=== PATIENT | female | born 1960 | race American Indian/Alaskan Native ===

== ENCOUNTER 2017-10-06 13:19 | Inpatient (IN) | payer MEDICAID ==
[2017-10-06] MEDS ORDERED: Sodium Chloride 0.9% 1,000 ML IV STA (13:49)
--- NOTE | 2017-10-06 13:52 | ED PDOC ---
HPI: Abdomen Time Seen by Provider: 10/06/17 13:30 Chief Complaint (Nursing): Abdominal Pain History Per: Patient Onset/Duration Of Symptoms: Days (3) Current Symptoms Are (Timing): Still Present Severity: Moderate Pain Scale Rating Of: 4 Location Of Pain/Discomfort: Epigastric Quality Of Discomfort: Sharp Associated Symptoms: Nausea, Vomiting. denies: Fever, Diarrhea, Urinary Symptoms Exacerbating Factors: None Alleviating Factors: None Additional Complaint(s): Epigastric abd pain assoc with nausea and vomiting x 2-3 days. No fever or diarrhea. Past Medical History Vital Signs: Last Vital Signs Temp 98.0 F 10/06/17 13:26 Pulse 82 10/06/17 13:26 Resp 16 10/06/17 13:26 BP 155/100 H 10/06/17 13:26 Pulse Ox 96 10/06/17 13:52 - Medical History PMH: GERD, HTN - Surgical History Surgical History: Denies: Pacemaker - Family History Family History: States: Unknown Family Hx - Home Medications Home Medications: Ambulatory Orders Medication Instructions Recorded Amlodipine Besylate [Norvasc] 2.5 mg PO DAILY 11/11/12 Bioflavonoid/Ca/Hesperidin/R 1 tab PO DAILY 11/11/12 [Kassi C] Brimonidine Tartrate/Timolol 1 drop OU BID 11/11/12 [Combigan 0.2%-0.5% 5 ml] Latanoprost 0.005% Opht [XALATAN 1 drp OP HS 11/11/12 2.5 Ml] Cyclobenzaprine HCl [Flexeril] 10 mg PO BID PRN #0 tab 06/25/14 Ibuprofen [Motrin Tab] 600 mg PO Q8H PRN #20 tab 06/25/14 - Allergies Allergies/Adverse Reactions: Allergies Allergy/AdvReac Type Severity Reaction Status Date / Time No Known Allergies Allergy Verified 11/11/12 07:46 Review of Systems ROS Statement: Except As Marked, All Systems Reviewed And Found Negative Gastrointestinal: Positive for: Nausea, Vomiting, Abdominal Pain Physical Exam - Physical Exam Appears: Positive for: Non-toxic, No Acute Distress Skin: Positive for: Normal Color, Warm, DRY Cardiovascular/Chest: Positive for: Regular Rate, Rhythm Gastrointestinal/Abdominal: Positive for: Bowel Sounds, Soft, Tenderness ( Epigastric) Back: Negative for: L CVA Tenderness, R CVA Tenderness Extremity: Positive for: Normal ROM Neurologic/Psych: Positive for: Alert, Oriented - Laboratory Results Result Diagrams: 10/06/17 14:26 10/06/17 15:15 - ECG O2 Sat by Pulse Oximetry: 96 Disposition - Clinical Impression Clinical Impression: Pancreatitis, Cholelithiasis - Patient ED Disposition Is Patient to be Admitted: Yes - Disposition Disposition Time: 17:04 Condition: FAIR Forms: [email or web address] ([place]) - Pt Status Changed To: Hospital Disposition Of: Inpatient - Admit Certification Admit to Inpatient:: After my assessment, the patient will require hospitalization for at least two midnights. This is because of the severity of symptoms shown, intensity of services needed, and/or the medical risk in this patient being treated as an outpatient. - POA Present On Arrival: None
[2017-10-06 14:32] LABS: BASO # 0.1 K/uL (0.0-0.2); BASO % 0.6 % (0.0-2.0); EOS # 0.1 K/uL (0.0-0.7); EOS % 0.7 % (0.0-4.0); HEMOGLOBIN 14.3 g/dL (12.0-16.0); LYMPH # 1.7 K/uL (1.0-4.3); LYMPH % 13.4 % (20.0-40.0); MEAN CELL VOLUME 88.4 fl (81.0-99.0); MEAN CORPUSCULAR HEMOGLOBIN 29.8 pg (27.0-31.0); MEAN CORPUSCULAR HGB CONC 33.7 g/dL (33.0-37.0); MEAN PLATELET VOLUME 9.4 fl (7.2-11.7); MONO # 0.9 K/uL (0.0-0.8); MONO % 6.9 % (0.0-10.0); NEUT # 10.2 K/uL (1.8-7.0); NEUT % 78.4 % (50.0-75.0); NRBC % 0.1 % (0.0-0.0); RBC 4.79 Mil/uL (3.80-5.20); RED CELL DISTRIBUTION WIDTH 13.8 % (11.5-14.5); WHITE BLOOD COUNT 13.1 K/uL (4.8-10.8)
[2017-10-06 15:55] LABS: ALBUMIN 4.3 g/dL (3.5-5.0); ALT/SGPT 996 U/L (9-52); AST/SGOT 565 U/L (14-36); BLOOD UREA NITROGEN 16 mg/dl (7-17); CALCIUM 9.4 mg/dL (8.4-10.2); GFR AFRICAN-AMERICAN > 60; GFR NON-AFRICAN AMERICAN > 60
[2017-10-06 16:34] LABS: LIPASE 18558 U/L (23-300)
--- NOTE | 2017-10-06 16:47 | US ---
HISTORY: epigastric pain COMPARISON: Abdominal ultrasound performed 01/31/14 TECHNIQUE: Sonographic evaluation of the right upper quadrant of the abdomen. FINDINGS: LIVER: Measures 15.4 cm in length. Echogenic liver may be seen in setting of hepatic parenchymal disease or fatty infiltration. 1.2 x 1.1 x 1.0 cm anechoic avascular lesion within the left hepatic lobe consistent with a cyst. The main portal vein appears patent with normal directional flow. No intrahepatic bile duct dilatation. GALLBLADDER: Contracted gallbladder containing gallstones. No gallbladder wall thickening or pericholecystic edema. Negative sonographic Land's sign as assessed by the renderer. COMMON BILE DUCT: Measures 3 mm. PANCREAS: Not well-visualized. RIGHT KIDNEY: Measures 10.4 x 5.0 x 3.8 cm. No obstructing calculus or hydronephrosis identified. AORTA: Limited visualization appears grossly unremarkable. IVC: Limited visualization appears grossly unremarkable. OTHER FINDINGS: None . IMPRESSION: Contracted gallbladder with gallstones. Echogenic liver may be seen in setting of hepatic parenchymal disease or fatty infiltration. 1.2 x 1.1 x 1.0 cm anechoic avascular lesion within the left hepatic lobe consistent with a cyst.
[2017-10-06] MEDS ORDERED: Lactated Ringer's 1,000 ML IV SCH (17:00)
[2017-10-06 19:14] LABS: VENOUS BLOOD GAS BASE EXCESS -2.2 mmol/L (0.0-2.0); VENOUS BLOOD GAS PCO2 37 mmHg (40-60); VENOUS BLOOD GAS PO2 37 mm/Hg (30-55); VENOUS BLOOD PH 7.39 (7.32-7.43)
[2017-10-06] MEDS ORDERED: Sodium Chloride 0.9% 1,000 ML IV SCH (20:15)
[2017-10-06] MEDS: Latanoprost 0.005% Opht SOUTION OU SCH (22:35)
[2017-10-06] MEDS: Patient's Own Med (Dorzolamide 2%/Timolol 0.5% [Cosopt 2%-0.5% Opht] 1 DROP) OU SCH (22:35)
[2017-10-07] MEDS ORDERED: Dextrose 5%/0.9% NS 1,000 ML IV SCH (01:45)
[2017-10-07 05:45] LABS: HEMOGLOBIN 12.5 g/dL (12.0-16.0); MEAN CELL VOLUME 87.9 fl (81.0-99.0); MEAN CORPUSCULAR HEMOGLOBIN 29.6 pg (27.0-31.0); MEAN CORPUSCULAR HGB CONC 33.7 g/dL (33.0-37.0); RBC 4.22 Mil/uL (3.80-5.20); RED CELL DISTRIBUTION WIDTH 13.3 % (11.5-14.5); WHITE BLOOD COUNT 10.3 K/uL (4.8-10.8)
[2017-10-07 06:25] LABS: ALBUMIN 3.6 g/dL (3.5-5.0); ALT/SGPT 734 U/L (9-52); AST/SGOT 258 U/L (14-36); BLOOD UREA NITROGEN 14 mg/dl (7-17); CALCIUM 9.2 mg/dL (8.4-10.2); GFR AFRICAN-AMERICAN > 60; GFR NON-AFRICAN AMERICAN > 60; LIPASE 3144 U/L (23-300)
[2017-10-07] MEDS ORDERED: [UNRECOGNIZED DRUG - MIXTURE] PO SCH (09:00)
[2017-10-07] MEDS: Patient's Own Med (Dorzolamide 2%/Timolol 0.5% [Cosopt 2%-0.5% Opht] 1 DROP) OU SCH ×2 (09:15→17:44)
[2017-10-07] MEDS ORDERED: Potassium Chl 40 mEq in D5-NS 1,000 ML IV SCH (09:21)
--- NOTE | 2017-10-07 10:46 | CARD ---
APPROVED REPORT EKG Measurement Heart [id number] <Conclusion> Normal sinus rhythm Low voltage QRS Nonspecific T wave abnormality Abnormal ECG
--- NOTE | 2017-10-07 11:11 | RAD ---
HISTORY: cough COMPARISON: 01/30/2014 FINDINGS: LUNGS: No active pulmonary disease. PLEURA: No significant pleural effusion identified, no pneumothorax apparent. CARDIOVASCULAR: Normal. OSSEOUS STRUCTURES: No significant abnormalities. VISUALIZED UPPER ABDOMEN: Normal. OTHER FINDINGS: None. IMPRESSION: No active disease.
[2017-10-07 14:39] LABS: INR 1.2 (0.9-1.2); PARTIAL THROMBOPLASTIN TIME 38.2 Seconds (25.6-37.1); PROTHROMBIN TIME 13.2 Seconds (9.8-13.1)
--- NOTE | 2017-10-07 15:12 | CP.PCM.CON ---
<Alan Castro - Last Filed: 10/07/17 15:08> History of Present Illness - History of Present Illness History of Present Illness: General Surgery Consult Note for Dr. Sanchez This is a 57F with a PMH of HTN and chronic post prandial abdominal pain for over one year. She reports that 2 days ago her pain became unbearable radiating from the back to the epigastrium. However she reports that this event was not in association with meals. She reports that she has been unable to keep her meals down. SHe reports multiple episodes of emesis that she describes as mucus with food contents. She denies any fevers or chills at home. She also complains of red urine for the past 4 days. On admission she had an abdominal ultrasound that shows gallbladder stones without and GB wall edema or CBD dilation. She denies any history of alcohol use. PMH: HTN PSH: Exlap for cyst compressing neighboring organs, appendectomy ALL: NKDA Social: Denies tob, ETOH, Drugs Review of Systems - Constitutional Constitutional: absent: Anorexia, Chills, Fever, Weight Loss - EENT Eyes: absent: Blind Spots, Blurred Vision Nose/Mouth/Throat: absent: Nasal Congestion, Nasal Discharge - Cardiovascular Cardiovascular: absent: Chest Pain, Dyspnea - Respiratory Respiratory: absent: Cough, Dyspnea - Gastrointestinal Gastrointestinal: Abdominal Pain, Diarrhea, Heartburn, Nausea, Vomiting. absent : Hematemesis, Hematochezia - Genitourinary Genitourinary: Other - Musculoskeletal Musculoskeletal: Back Pain - Integumentary Integumentary: absent: Lesions Past Patient History - Infectious Disease Hx of Infectious Diseases: None - Past Medical History & Family History Past Medical History?: Yes - Past Social History Smoking Status: Never Smoked - CARDIAC Hx Cardiac Disorders: Yes Hx Hypertension: Yes - PULMONARY Hx Respiratory Disorders: Yes Hx Asthma: Yes ("a touch of asthma") - NEUROLOGICAL Hx Neurological Disorder: Yes HX Cerebrovascular Accident: Yes (7 yrs ago) - HEENT Hx Glaucoma: Yes - RENAL Hx Chronic Kidney Disease: No - HEMATOLOGICAL/ONCOLOGICAL Hx AIDS: No Hx Blood Transfusions: No Hx Blood Transfusion Reaction: No Hx Human Immunodeficiency Virus (HIV): No - INTEGUMENTARY Hx Dermatological Problems: No - MUSCULOSKELETAL/RHEUMATOLOGICAL Hx Musculoskeletal Disorders: Yes (SCIATICA) Hx Falls: No - GASTROINTESTINAL Hx Gastroesophageal Reflux: Yes - GENITOURINARY/GYNECOLOGICAL Hx Genitourinary Disorders: No - PSYCHIATRIC Hx Substance Use: No - SURGICAL HISTORY Hx Surgeries: Yes Hx Hysterectomy: Yes Other/Comment: abdominal tumor removed - ANESTHESIA Hx Anesthesia: Yes Hx Anesthesia Reactions: No Meds Allergies/Adverse Reactions: Allergies Allergy/AdvReac Type Severity Reaction Status Date / Time No Known Allergies Allergy Verified 11/11/12 07:46 - Medications Medications: Current Medications Acetaminophen (Tylenol 325mg Tab) 650 mg PO Q6 PRN PRN Reason: Pain, Mild (1-3) Amlodipine Besylate (Norvasc) 2.5 mg PO DAILY [facility] Enoxaparin Sodium (Lovenox) 40 mg SC DAILY [facility] PRN Reason: Protocol Home Med (Dorzolamide 2%/Timolol 0.5% [Cosopt 2%-0.5% Opht]) 1 drop OU BID [facility] Last Admin: 10/07/17 09:15 Dose: 1 drop Hydromorphone HCl (Dilaudid) 1 mg IVP Q4 PRN PRN Reason: Pain, severe (8-10) Hydromorphone HCl (Dilaudid) 0.5 mg IVP Q6H PRN PRN Reason: Pain, moderate (4-7) Potassium Chloride/Dextrose/Sod Cl (D5-Ns1l+40meq Kcl) 1,000 mls @ 125 mls/hr IV .Q8H [facility] Stop: 10/08/17 01:31 Latanoprost (Xalatan Opht) 1 drop OU HS [facility] Last Admin: 10/06/17 22:35 Dose: 1 drop Physical Exam - Constitutional Appears: Non-toxic, No Acute Distress - Head Exam Head Exam: ATRAUMATIC, NORMOCEPHALIC - Eye Exam Eye Exam: EOMI - ENT Exam ENT Exam: Mucous Membranes Moist - Respiratory Exam Respiratory Exam: NORMAL BREATHING PATTERN - Cardiovascular Exam Cardiovascular Exam: REGULAR RHYTHM, +S1, +S2 - GI/Abdominal Exam GI & Abdominal Exam: Soft, Tenderness. absent: Distended, Firm, Guarding, Rebound, Rigid - Extremities Exam Extremities exam: Positive for: normal inspection - Neurological Exam Neurological exam: Alert, Oriented x3 - Psychiatric Exam Psychiatric exam: Normal Affect, Normal Mood - Skin Skin Exam: Dry, Intact Results - Vital Signs Recent Vital Signs: Last Vital Signs Temp 98.0 F 10/07/17 12:00 Pulse 76 10/07/17 12:00 Resp 18 10/07/17 12:00 BP 143/93 H 10/07/17 12:00 Pulse Ox 98 10/07/17 12:00 - Labs Result Diagrams: 10/07/17 04:20 10/07/17 04:20 Labs: Laboratory Results - last 24 hr 10/06/17 10/06/17 10/07/17 15:15 19:05 04:20 WBC 10.3 RBC 4.22 Hgb 12.5 Hct 37.1 MCV 87.9 MCH 29.6 MCHC 33.7 RDW 13.3 Plt Count 364 PT INR APTT pO2 37 VBG pH 7.39 VBG pCO2 37 L VBG HCO3 22.5 VBG Total CO2 23.5 VBG O2 Sat (Calc) 77.0 H VBG Base Excess -2.2 L VBG Potassium 3.1 L Glucose 98 Lactate 1.2 FiO2 21.0 Sodium 143 141.0 Potassium 3.6 Chloride 109 H 110.0 H Carbon Dioxide 19 L Anion Gap 19 BUN 16 Creatinine 0.7 Est GFR ( Amer) > 60 Est GFR (Non-Af Amer) > 60 Random Glucose 104 Calcium 9.4 Total Bilirubin 3.5 H AST 565 H ALT 996 H Alkaline Phosphatase 674 H Total Protein 8.7 H Albumin 4.3 Globulin 4.4 H Albumin/Globulin Ratio 1.0 Lipase 12791 H TSH 3rd Generation Venous Blood Potassium 3.1 L 10/07/17 10/07/17 04:20 11:33 WBC RBC Hgb Hct MCV MCH MCHC RDW Plt Count PT 13.2 H INR 1.2 APTT 38.2 H pO2 VBG pH VBG pCO2 VBG HCO3 VBG Total CO2 VBG O2 Sat (Calc) VBG Base Excess VBG Potassium Glucose Lactate FiO2 Sodium 147 Potassium 2.9 L Chloride 111 H Carbon Dioxide 22 Anion Gap 17 BUN 14 Creatinine 0.8 Est GFR ( Amer) > 60 Est GFR (Non-Af Amer) > 60 Random Glucose 82 Calcium 9.2 Total Bilirubin 1.7 H AST 258 H D ALT 734 H D Alkaline Phosphatase 526 H D Total Protein 7.3 Albumin 3.6 Globulin 3.7 Albumin/Globulin Ratio 1.0 Lipase 3144 H TSH 3rd Generation 1.10 Venous Blood Potassium Assessment & Plan - Assessment and Plan (Free Text) Assessment: This is a 57F with pancreatitis likely secondary to gallstones NPO advance based on clinical improvment IVF Serial Abdominal Exams Follow Up GI Recommendations Followup MRCP Operative planning this admission when pancreatitis resolves Discuss with Dr. Laura Castro PGY2 <Gray Sanchez - Last Filed: 10/08/17 09:39> Meds - Medications Medications: Current Medications Acetaminophen (Tylenol 325mg Tab) 650 mg PO Q6 PRN PRN Reason: Pain, Mild (1-3) Amlodipine Besylate (Norvasc) 2.5 mg PO DAILY [facility] Last Admin: 10/08/17 09:28 Dose: 2.5 mg Enoxaparin Sodium (Lovenox) 40 mg SC DAILY [facility] PRN Reason: Protocol Last Admin: 10/08/17 09:27 Dose: 40 mg Home Med (Dorzolamide 2%/Timolol 0.5% [Cosopt 2%-0.5% Opht]) 1 drop OU BID [facility] Last Admin: 10/08/17 09:25 Dose: 1 drop Hydromorphone HCl (Dilaudid) 1 mg IVP Q4 PRN PRN Reason: Pain, severe (8-10) Hydromorphone HCl (Dilaudid) 0.5 mg IVP Q6H PRN PRN Reason: Pain, moderate (4-7) Last Admin: 10/08/17 04:41 Dose: 0.5 mg Lactated Ringer's (Lactated Ringer's) 1,000 mls @ 150 mls/hr IV .Q6H40M [facility] Last Admin: 10/08/17 03:50 Dose: 150 mls/hr Latanoprost (Xalatan Opht) 1 drop OU HS [facility] Last Admin: 10/07/17 21:16 Dose: 1 drop Metoprolol Tartrate (Lopressor) 50 mg PO Q12 [facility] Last Admin: 10/07/17 21:17 Dose: 50 mg Results - Vital Signs Recent Vital Signs: Last Vital Signs Temp 98.1 F 10/08/17 08:00 Pulse 81 10/08/17 09:28 Resp 18 10/08/17 08:00 BP 133/83 10/08/17 09:28 Pulse Ox 96 10/08/17 08:00 - Labs Result Diagrams: 10/07/17 04:20 10/08/17 04:30 Labs: Laboratory Results - last 24 hr 10/07/17 10/08/17 11:33 04:30 PT 13.2 H INR 1.2 APTT 38.2 H Sodium 144 Potassium 3.1 L Chloride 108 H Carbon Dioxide 25 Anion Gap 14 BUN 6 L Creatinine 0.6 L Est GFR ( Amer) > 60 Est GFR (Non-Af Amer) > 60 Random Glucose 83 Calcium 8.8 Total Bilirubin 0.9 AST 97 H D ALT 479 H D Alkaline Phosphatase 440 H Total Protein 7.0 Albumin 3.4 L Globulin 3.6 Albumin/Globulin Ratio 1.0 Triglycerides 125 Cholesterol 205 H LDL Cholesterol Direct 129 HDL Cholesterol 31 Lipase 717 H Attending/Attestation - Attestation I have personally seen and examined this patient.: Yes I have fully participated in the care of the patient.: Yes I have reviewed all pertinent clinical information: Yes Notes (Text): Pt was seen and examined at bedside Agree with above note and assessment Pt with Pancreatitis with cholelithiasis Upper abdominal tenderness Labs and radiology reviewed Ass: GS pancreatitis, LFts trending down C/w current mx Repeat LFTs in am IV antibiotics Plan d.w pt in detail Risk and benefit explained in detail.
[2017-10-07] MEDS: Enoxaparin 40 mg Syringe SC SCH (17:45)
--- NOTE | 2017-10-07 17:58 | CP.PCM.CON ---
<Pedro Lassiter - Last Filed: 10/07/17 18:00> History of Present Illness - History of Present Illness History of Present Illness: Initial GI Consult Jun Blue is a 57F w/ hx of HTN and chronic abdominal pain who presented to the ER with abd pain. She reports chronic abd pain for the past 2 years but acutely worsened the past 2 days ago. She notes that her pain worsened after onset. She states that her pain is located in the epigastium radiating towards the back. She reports increased pain with any PO intake, even ice. She reports that she has associated nausea and vomiting. She reports multiple episodes of emesis that she describes as mucus with food contents. She denies any fevers or chills at home. On admission she had an abdominal ultrasound that shows gallbladder stones without and GB wall edema or CBD dilation. She denies any history of alcohol use. She reports previous endoscopy with no sig findings and denies any previous colonoscopy. She states that her last Bm was 3-4 days ago and notes intermittent diarrhea. Denies any fever, chills, or diaphoresis. Denies any previous hx of jaundice. Denies any hx of ETOH use. PMH: HTN PSH: Exlap for cyst compressing neighboring organs, appendectomy Social: Denies tob, ETOH, Drugs ROS: 12 point ROS conducted, neg other than above Past Patient History - Infectious Disease Hx of Infectious Diseases: None - Past Medical History & Family History Past Medical History?: Yes - Past Social History Smoking Status: Never Smoked - CARDIAC Hx Cardiac Disorders: Yes Hx Hypertension: Yes - PULMONARY Hx Respiratory Disorders: Yes Hx Asthma: Yes ("a touch of asthma") - NEUROLOGICAL Hx Neurological Disorder: Yes HX Cerebrovascular Accident: Yes (7 yrs ago) - HEENT Hx Glaucoma: Yes - RENAL Hx Chronic Kidney Disease: No - HEMATOLOGICAL/ONCOLOGICAL Hx AIDS: No Hx Blood Transfusions: No Hx Blood Transfusion Reaction: No Hx Human Immunodeficiency Virus (HIV): No - INTEGUMENTARY Hx Dermatological Problems: No - MUSCULOSKELETAL/RHEUMATOLOGICAL Hx Musculoskeletal Disorders: Yes (SCIATICA) Hx Falls: No - GASTROINTESTINAL Hx Gastroesophageal Reflux: Yes - GENITOURINARY/GYNECOLOGICAL Hx Genitourinary Disorders: No - PSYCHIATRIC Hx Substance Use: No - SURGICAL HISTORY Hx Surgeries: Yes Hx Hysterectomy: Yes Other/Comment: abdominal tumor removed - ANESTHESIA Hx Anesthesia: Yes Hx Anesthesia Reactions: No Meds Allergies/Adverse Reactions: Allergies Allergy/AdvReac Type Severity Reaction Status Date / Time No Known Allergies Allergy Verified 11/11/12 07:46 - Medications Medications: Current Medications Acetaminophen (Tylenol 325mg Tab) 650 mg PO Q6 PRN PRN Reason: Pain, Mild (1-3) Amlodipine Besylate (Norvasc) 2.5 mg PO DAILY [facility] Last Admin: 10/07/17 17:48 Dose: 2.5 mg Enoxaparin Sodium (Lovenox) 40 mg SC DAILY [facility] PRN Reason: Protocol Last Admin: 10/07/17 17:45 Dose: 40 mg Home Med (Dorzolamide 2%/Timolol 0.5% [Cosopt 2%-0.5% Opht]) 1 drop OU BID [facility] Last Admin: 10/07/17 17:44 Dose: 1 drop Hydromorphone HCl (Dilaudid) 1 mg IVP Q4 PRN PRN Reason: Pain, severe (8-10) Hydromorphone HCl (Dilaudid) 0.5 mg IVP Q6H PRN PRN Reason: Pain, moderate (4-7) Potassium Chloride/Dextrose/Sod Cl (D5-Ns1l+40meq Kcl) 1,000 mls @ 125 mls/hr IV .Q8H [facility] Stop: 10/08/17 01:31 Latanoprost (Xalatan Opht) 1 drop OU HS [facility] Last Admin: 10/06/17 22:35 Dose: 1 drop Physical Exam - Constitutional Appears: No Acute Distress - Head Exam Head Exam: ATRAUMATIC, NORMOCEPHALIC - Eye Exam Eye Exam: Normal appearance - ENT Exam ENT Exam: Mucous Membranes Moist - Neck Exam Neck exam: Positive for: Normal Inspection - Respiratory Exam Respiratory Exam: Clear to Auscultation Bilateral, NORMAL BREATHING PATTERN. absent: Prolonged Expiratory Phase, Rhonchi, Wheezes, Respiratory Distress - Cardiovascular Exam Cardiovascular Exam: REGULAR RHYTHM, +S1, +S2 - GI/Abdominal Exam GI & Abdominal Exam: Normal Bowel Sounds, Soft, Tenderness (epigastum and RUQ). absent: Guarding, Rigid Additional comments: obese - Extremities Exam Extremities exam: Negative for: joint swelling, pedal edema - Neurological Exam Neurological exam: Alert, Oriented x3 - Psychiatric Exam Psychiatric exam: Normal Affect, Normal Mood - Skin Skin Exam: Dry, Intact, Normal Color, Warm Results - Vital Signs Recent Vital Signs: Last Vital Signs Temp 98.1 F 10/07/17 16:00 Pulse 75 10/07/17 17:48 Resp 16 10/07/17 16:00 BP 155/97 H 10/07/17 17:48 Pulse Ox 98 10/07/17 16:00 - Labs Result Diagrams: 10/07/17 04:20 10/07/17 04:20 Labs: Laboratory Results - last 24 hr 10/06/17 10/07/17 10/07/17 19:05 04:20 04:20 WBC 10.3 RBC 4.22 Hgb 12.5 Hct 37.1 MCV 87.9 MCH 29.6 MCHC 33.7 RDW 13.3 Plt Count 364 PT INR APTT pO2 37 VBG pH 7.39 VBG pCO2 37 L VBG HCO3 22.5 VBG Total CO2 23.5 VBG O2 Sat (Calc) 77.0 H VBG Base Excess -2.2 L VBG Potassium 3.1 L Sodium 141.0 147 Chloride 110.0 H 111 H Glucose 98 Lactate 1.2 FiO2 21.0 Potassium 2.9 L Carbon Dioxide 22 Anion Gap 17 BUN 14 Creatinine 0.8 Est GFR ( Amer) > 60 Est GFR (Non-Af Amer) > 60 Random Glucose 82 Calcium 9.2 Total Bilirubin 1.7 H AST 258 H D ALT 734 H D Alkaline Phosphatase 526 H D Total Protein 7.3 Albumin 3.6 Globulin 3.7 Albumin/Globulin Ratio 1.0 Lipase 3144 H TSH 3rd Generation 1.10 Venous Blood Potassium 3.1 L 10/07/17 11:33 WBC RBC Hgb Hct MCV MCH MCHC RDW Plt Count PT 13.2 H INR 1.2 APTT 38.2 H pO2 VBG pH VBG pCO2 VBG HCO3 VBG Total CO2 VBG O2 Sat (Calc) VBG Base Excess VBG Potassium Sodium Chloride Glucose Lactate FiO2 Potassium Carbon Dioxide Anion Gap BUN Creatinine Est GFR ( Amer) Est GFR (Non-Af Amer) Random Glucose Calcium Total Bilirubin AST ALT Alkaline Phosphatase Total Protein Albumin Globulin Albumin/Globulin Ratio Lipase TSH 3rd Generation Venous Blood Potassium Assessment & Plan - Assessment and Plan (Free Text) Assessment: Jun Blue is a 57M w/ hx of HTN who presents to the Ed wirg abd pain. Etiology was found to be likely 2/2 pancreatitis. Etiology of acute pancreatitis is likely gallstone induced, r/o TG and IGG4 Acute pancreatitis, etiology likely gallstone, r/o IGG4 an TG Cholelithiasis Elevated LFTs, likely 2/2 passed stone vs pancreatitis, r/o viral hep, autoimmune Obese Plan: -start clears -U/S reviewed -CBD is 3mm, ellyley passed stoned -MRCP ordered by primary team -hepatitis panel -trend LFTs -check lipid panel and IGG4 -surgery consulted -continue with LR @ 150ml/hr -hold any abx -recommend oupt EGD and colonoscopy -continue PPI -will continue to follow D/W Dr. Dickens <Simone Dickens MD - Last Filed: 10/07/17 18:58> Meds - Medications Medications: Current Medications Acetaminophen (Tylenol 325mg Tab) 650 mg PO Q6 PRN PRN Reason: Pain, Mild (1-3) Amlodipine Besylate (Norvasc) 2.5 mg PO DAILY [facility] Last Admin: 10/07/17 17:48 Dose: 2.5 mg Enoxaparin Sodium (Lovenox) 40 mg SC DAILY [facility] PRN Reason: Protocol Last Admin: 10/07/17 17:45 Dose: 40 mg Home Med (Dorzolamide 2%/Timolol 0.5% [Cosopt 2%-0.5% Opht]) 1 drop OU BID [facility] Last Admin: 10/07/17 17:44 Dose: 1 drop Hydromorphone HCl (Dilaudid) 1 mg IVP Q4 PRN PRN Reason: Pain, severe (8-10) Hydromorphone HCl (Dilaudid) 0.5 mg IVP Q6H PRN PRN Reason: Pain, moderate (4-7) Potassium Chloride/Dextrose/Sod Cl (D5-Ns1l+40meq Kcl) 1,000 mls @ 125 mls/hr IV .Q8H [facility] Stop: 10/08/17 01:31 Lactated Ringer's (Lactated Ringer's) 1,000 mls @ 150 mls/hr IV .Q6H40M [facility] Latanoprost (Xalatan Opht) 1 drop OU HS [facility] Last Admin: 10/06/17 22:35 Dose: 1 drop Metoprolol Tartrate (Lopressor) 50 mg PO Q12 [facility] Results - Vital Signs Recent Vital Signs: Last Vital Signs Temp 98.1 F 10/07/17 16:00 Pulse 75 10/07/17 17:48 Resp 16 10/07/17 16:00 BP 155/97 H 10/07/17 17:48 Pulse Ox 98 10/07/17 16:00 - Labs Result Diagrams: 10/07/17 04:20 10/07/17 04:20 Labs: Laboratory Results - last 24 hr 10/06/17 10/07/17 10/07/17 19:05 04:20 04:20 WBC 10.3 RBC 4.22 Hgb 12.5 Hct 37.1 MCV 87.9 MCH 29.6 MCHC 33.7 RDW 13.3 Plt Count 364 PT INR APTT pO2 37 VBG pH 7.39 VBG pCO2 37 L VBG HCO3 22.5 VBG Total CO2 23.5 VBG O2 Sat (Calc) 77.0 H VBG Base Excess -2.2 L VBG Potassium 3.1 L Sodium 141.0 147 Chloride 110.0 H 111 H Glucose 98 Lactate 1.2 FiO2 21.0 Potassium 2.9 L Carbon Dioxide 22 Anion Gap 17 BUN 14 Creatinine 0.8 Est GFR ( Amer) > 60 Est GFR (Non-Af Amer) > 60 Random Glucose 82 Calcium 9.2 Total Bilirubin 1.7 H AST 258 H D ALT 734 H D Alkaline Phosphatase 526 H D Total Protein 7.3 Albumin 3.6 Globulin 3.7 Albumin/Globulin Ratio 1.0 Lipase 3144 H TSH 3rd Generation 1.10 Venous Blood Potassium 3.1 L 10/07/17 11:33 WBC RBC Hgb Hct MCV MCH MCHC RDW Plt Count PT 13.2 H INR 1.2 APTT 38.2 H pO2 VBG pH VBG pCO2 VBG HCO3 VBG Total CO2 VBG O2 Sat (Calc) VBG Base Excess VBG Potassium Sodium Chloride Glucose Lactate FiO2 Potassium Carbon Dioxide Anion Gap BUN Creatinine Est GFR ( Amer) Est GFR (Non-Af Amer) Random Glucose Calcium Total Bilirubin AST ALT Alkaline Phosphatase Total Protein Albumin Globulin Albumin/Globulin Ratio Lipase TSH 3rd Generation Venous Blood Potassium Attending/Attestation - Attestation I have personally seen and examined this patient.: Yes I have fully participated in the care of the patient.: Yes I have reviewed all pertinent clinical information: Yes Notes (Text): 10/07/17 18:55 Patient seen earlier today with GI fellow. This is a 57 yr old M with history of HTN who presents to the ER with abdominal pain in setting of acute uncomplicated pancreatitis in background of cholelithiasis. Etiology of acute pancreatitis is likely gallstone induced, will r/o TG and IGG4. LFT downtrending. Abdominal sonogram shows CBD of 3 mm. MRCP pending. Likely passed bile duct stone. Manage pancreatitis with iVF of 150 cc/hr and start clear liquid diet today if tolerated. Send hepatitis panel and follow surgical recommendations for CCY. DVT prophylaxis
[2017-10-07] MEDS: Lactated Ringer's 1,000 ML IV SCH (21:15)
[2017-10-07] MEDS: Latanoprost 0.005% Opht SOUTION OU SCH (21:16)
--- NOTE | 2017-10-08 00:43 | CON ---
DATE: CARDIOLOGY CONSULTATION REASON FOR CONSULTATION: Hypertension and acute cholecystitis and pancreatitis. HISTORY OF PRESENT ILLNESS: The patient is a 57-year-old female who has a history of hypertension and was treated for acid reflux. She presented because of abdominal pain radiating to the back associated with nausea and vomiting as well as diaphoresis. Patient is unaware of any prior cardiac history other than history of hypertension. Patient was diagnosed with calculous cholecystitis as well as pancreatitis. Patient was unaware of any history of gallstones in the past; however, she was treated for reflux and was experiencing similar symptoms in the past. SOCIAL HISTORY: Nonsmoker, nondrinker. 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 MEDICATIONS: Current medications are D5 normal saline with KCl at 125 mL an hour, Dilaudid 1 mg intravenously q. 4 hours, Lovenox 20 mg once a day, Norvasc 2.5 mg once a day, Tylenol 650 mg q. 6 hours p.r.n. for mild pain. REVIEW OF SYSTEMS: No hematemesis or melena, no fever or chills, no retrosternal chest pain and no palpitation or syncope. PHYSICAL EXAMINATION: GENERAL: Patient is a middle-aged female, who does not appear to be in acute distress. VITAL SIGNS: Blood pressure 155/97, heart rate is 75, temperature 98.1, respirations 16. HEENT: Normocephalic. NECK: No JVD. CHEST: Clear. HEART: S1, S2 regular. ABDOMEN: Soft. EXTREMITIES: No edema. DIAGNOSTIC DATA: Portable chest x-ray revealed no active disease. EKG, sinus rhythm at a rate of 84 with nonspecific T-wave changes. Abdominal ultrasound revealed contracted gallbladder with gallstones. Echogenic liver. A 1.2 x 1.1 x 1 cm anechoic vascular lesion within the left hepatic lobe consistent with a cyst. MRCP was performed, but the report is still pending. LABORATORY DATA: Today's CBC is within normal limits. Yesterday's white count was 13.1. SMA-7: Sodium 147, potassium 2.9, chloride 111, CO2 of 22, glucose 259, BUN 14, creatinine 0.8. AST and ALT are 258 and 734 respectively, significant improvement compared to yesterday, alkaline phosphatase 526, lipase today is 3144, yesterday was 18,558. TSH level is within normal limits. Preliminary report of the echo revealed segmental apical and septal hypokinesis. Official report is still pending. ASSESSMENT: 1. Acute calculous cholecystitis. 2. Acute pancreatitis. 3. Cholestasis. 4. Hypokalemia. 5. Hypertension. 6. Segmental hypokinesis consistent with coronary artery disease. RECOMMENDATIONS: Continue Lovenox 20 mg subcutaneously daily, Norvasc at 2.5 mg once a day, start Lopressor 50 mg twice a day, statins are contraindicated in view of significantly elevated liver enzymes. Despite the presence of segmental wall motion abnormality on the echocardiographic study, the fact that the method is that the patient's dramatic earlier presentation with significant pancreatitis will justify a surgical intervention if there is no spontaneous or procedural passage of the gallbladder stones through the duodenum. Anticoagulation may not be justified because of the risk of hemorrhagic pancreatitis. Lucian Fountain MD [facility] # [id number]
--- NOTE | 2017-10-08 00:45 | CP.PCM.HP ---
History of Present Illness - History of Present Illness History of Present Illness: CC: bdominal Pain History of Present Illness: A 57F with a PMH of HTN and chronic postprandial abdominal pain for over one year. She reports that 2 days ago her pain became unbearable radiating from the back to the epigastrium. However she reports that this event was not in association with meals. She reports that she has been unable to keep her meals down. She reports multiple episodes of Emesis that she describes as mucus with food contents. She denies any fevers or chills at home. She also complains of red urine for the past 4 days. On admission she had an abdominal ultrasound that shows gallbladder stones without and GB wall edema or CBD dilation. She denies any history of alcohol use. +[place]. Denies chest pain, Palpitation or dyspnea at rest. Denies Orthopnia or PND. Present on Admission - Present on Admission Any Indicators Present on Admission: No History of DVT/PE: No History of Uncontrolled Diabetes: No Urinary Catheter: No Decubitus Ulcer Present: No Review of Systems - Review of Systems All systems: reviewed and no additional remarkable complaints except Past Patient History - Infectious Disease Hx of Infectious Diseases: None - Past Medical History & Family History Past Medical History?: Yes Past Family History: Reviewed and not pertinent - Past Social History Smoking Status: Never Smoked Alcohol: None Drugs: Denies - CARDIAC Hx Cardiac Disorders: Yes Hx Hypertension: Yes - PULMONARY Hx Respiratory Disorders: Yes Hx Asthma: Yes ("a touch of asthma") - NEUROLOGICAL Hx Neurological Disorder: Yes HX Cerebrovascular Accident: Yes (7 yrs ago) - HEENT Hx Glaucoma: Yes - RENAL Hx Chronic Kidney Disease: No - HEMATOLOGICAL/ONCOLOGICAL Hx AIDS: No Hx Blood Transfusions: No Hx Blood Transfusion Reaction: No Hx Human Immunodeficiency Virus (HIV): No - INTEGUMENTARY Hx Dermatological Problems: No - MUSCULOSKELETAL/RHEUMATOLOGICAL Hx Musculoskeletal Disorders: Yes (SCIATICA) Hx Falls: No - GASTROINTESTINAL Hx Gastroesophageal Reflux: Yes - GENITOURINARY/GYNECOLOGICAL Hx Genitourinary Disorders: No - PSYCHIATRIC Hx Substance Use: No - SURGICAL HISTORY Hx Surgeries: Yes Hx Hysterectomy: Yes Other/Comment: abdominal tumor removed - ANESTHESIA Hx Anesthesia: Yes Hx Anesthesia Reactions: No Meds Allergies/Adverse Reactions: Allergies Allergy/AdvReac Type Severity Reaction Status Date / Time No Known Allergies Allergy Verified 11/11/12 07:46 Physical Exam - Constitutional Appears: Well, No Acute Distress - Head Exam Head Exam: ATRAUMATIC, NORMAL INSPECTION, NORMOCEPHALIC - Eye Exam Eye Exam: EOMI, Normal appearance, PERRL Pupil Exam: NORMAL ACCOMODATION, PERRL - ENT Exam ENT Exam: Mucous Membranes Moist, Normal Exam - Neck Exam Neck exam: Positive for: Full Rom, Normal Inspection - Respiratory Exam Respiratory Exam: Clear to Auscultation Bilateral, NORMAL BREATHING PATTERN - Cardiovascular Exam Cardiovascular Exam: REGULAR RHYTHM, +S1, +S2 - GI/Abdominal Exam GI & Abdominal Exam: Guarding, Normal Bowel Sounds, Tenderness. absent: Rebound , Rigid Additional comments: Obese abdomen - Rectal Exam Rectal Exam: NORMAL INSPECTION. absent: Deferred, Black Stool, Bloody Stool, Hemorrhoids, Fecal Impaction - Exam Exam: Circumcision, NORMAL INSPECTION External exam: NORMAL EXTERNAL EXAM Speculum exam: NORMAL SPECULUM EXAM Bimanual exam: NORMAL BIMANUAL EXAM - Extremities Exam Extremities exam: Positive for: normal capillary refill, normal inspection, pedal edema - Back Exam Back exam: FULL ROM, NORMAL INSPECTION - Neurological Exam Neurological exam: Alert, CN II-XII Intact, Normal Gait, Oriented x3, Reflexes Normal - Psychiatric Exam Psychiatric exam: Normal Affect, Normal Mood - Skin Skin Exam: Dry, Intact, Normal Color, Warm Results - Vital Signs Recent Vital Signs: Last Vital Signs Temp 98.2 F 10/08/17 00:30 Pulse 73 10/08/17 00:30 Resp 20 10/08/17 00:30 BP 135/89 10/08/17 00:30 Pulse Ox 96 10/08/17 00:30 - Labs Result Diagrams: 10/11/17 05:30 10/11/17 05:30 Labs: Laboratory Results - last 24 hr 10/07/17 10/07/17 10/07/17 04:20 04:20 11:33 WBC 10.3 RBC 4.22 Hgb 12.5 Hct 37.1 MCV 87.9 MCH 29.6 MCHC 33.7 RDW 13.3 Plt Count 364 PT 13.2 H INR 1.2 APTT 38.2 H Sodium 147 Potassium 2.9 L Chloride 111 H Carbon Dioxide 22 Anion Gap 17 BUN 14 Creatinine 0.8 Est GFR ( Amer) > 60 Est GFR (Non-Af Amer) > 60 Random Glucose 82 Calcium 9.2 Total Bilirubin 1.7 H AST 258 H D ALT 734 H D Alkaline Phosphatase 526 H D Total Protein 7.3 Albumin 3.6 Globulin 3.7 Albumin/Globulin Ratio 1.0 Lipase 3144 H TSH 3rd Generation 1.10 - EKG Data EKG Interpreted by: Myself EKG shows normal: Sinus rhythm, Intervals Rate: Normal - Imaging and Cardiology U/S Abdomen: Status: Report reviewed by me Additional comment: IMPRESSION: Contracted gallbladder with gallstones. Echogenic liver may be seen in setting of hepatic parenchymal disease or fatty infiltration. 1.2 x 1.1 x 1.0 cm anechoic avascular lesion within the left hepatic lobe consistent with a cyst. Chest x-ray Status: Report reviewed by me Additional comment: No Active Disease Assessment & Plan (1) Gallstone pancreatitis Assessment and Plan: Liapse>60012, and Abnormal LFTs NPO IVF Pain Medication PRN Zofran PRN Lipid Profile LDH Repeat Lipase, BMP and CBC with D MRCP GI and Surgery Consult Status: Acute Priority: High (2) Chronic abdominal pain Assessment and Plan: Most Likely Biliary Colick Status: Acute Priority: Medium (3) Exertional dyspnea Assessment and Plan: Severe Obese R/O Hypertensive Heart Disease Vs Stable Anginal Vs Lung Disease Serial trop 2D Echo Control BMP May need Cardiac Stress Test and Sleep Study as an outpatient Status: Chronic Priority: Medium (4) Essential hypertension Assessment and Plan: Continue Metoprolol Status: Chronic
[2017-10-08] MEDS: Lactated Ringer's 1,000 ML IV SCH ×4 (03:50→22:00)
[2017-10-08 05:55] LABS: ALBUMIN 3.4 g/dL (3.5-5.0); ALT/SGPT 479 U/L (9-52); AST/SGOT 97 U/L (14-36); BLOOD UREA NITROGEN 6 mg/dl (7-17); CALCIUM 8.8 mg/dL (8.4-10.2); GFR AFRICAN-AMERICAN > 60; GFR NON-AFRICAN AMERICAN > 60; HDL CHOLESTEROL 31 MG/DL (30-70); LIPASE 717 U/L (23-300)
[2017-10-08 06:06] LABS: LDL CHOLESTEROL 129 mg/dL (0-129)
[2017-10-08] MEDS: Patient's Own Med (Dorzolamide 2%/Timolol 0.5% [Cosopt 2%-0.5% Opht] 1 DROP) OU SCH ×2 (09:25→19:22)
[2017-10-08] MEDS: Enoxaparin 40 mg Syringe SC SCH (09:27)
--- NOTE | 2017-10-08 09:54 | CP.PCM.PN ---
<Pedro Lassiter - Last Filed: 10/08/17 09:59> Subjective - Date & Time of Evaluation Date of Evaluation: 10/08/17 Time of Evaluation: 09:45 - Subjective Subjective: PGY 4 GI Follow-up Pt seen and examined bedside improved abd pain tolerating clears +BM denies any fever, chills, or diaphoresis ROS: 10 point ROS conducted, neg other than above Objective - Vital Signs/Intake and Output Vital Signs (last 24 hours): Temp Pulse Resp BP Pulse Ox 98.1 F 81 18 133/83 96 10/08/17 08:00 10/08/17 09:28 10/08/17 08:00 10/08/17 09:28 10/08/17 08:00 - Medications Medications: Current Medications Acetaminophen (Tylenol 325mg Tab) 650 mg PO Q6 PRN PRN Reason: Pain, Mild (1-3) Amlodipine Besylate (Norvasc) 2.5 mg PO DAILY [facility] Last Admin: 10/08/17 09:28 Dose: 2.5 mg Enoxaparin Sodium (Lovenox) 40 mg SC DAILY [facility] PRN Reason: Protocol Last Admin: 10/08/17 09:27 Dose: 40 mg Home Med (Dorzolamide 2%/Timolol 0.5% [Cosopt 2%-0.5% Opht]) 1 drop OU BID [facility] Last Admin: 10/08/17 09:25 Dose: 1 drop Hydromorphone HCl (Dilaudid) 1 mg IVP Q4 PRN PRN Reason: Pain, severe (8-10) Hydromorphone HCl (Dilaudid) 0.5 mg IVP Q6H PRN PRN Reason: Pain, moderate (4-7) Last Admin: 10/08/17 04:41 Dose: 0.5 mg Lactated Ringer's (Lactated Ringer's) 1,000 mls @ 150 mls/hr IV .Q6H40M [facility] Last Admin: 10/08/17 03:50 Dose: 150 mls/hr Latanoprost (Xalatan Opht) 1 drop OU HS [facility] Last Admin: 10/07/17 21:16 Dose: 1 drop Metoprolol Tartrate (Lopressor) 50 mg PO Q12 [facility] Last Admin: 10/07/17 21:17 Dose: 50 mg - Labs Labs: 10/07/17 04:20 10/08/17 04:30 PT 13.2 Seconds (9.8-13.1) H 10/07/17 11:33 INR 1.2 (0.9-1.2) 10/07/17 11:33 APTT 38.2 Seconds (25.6-37.1) H 10/07/17 11:33 - Constitutional Appears: Well, No Acute Distress - Head Exam Head Exam: ATRAUMATIC, NORMOCEPHALIC - Eye Exam Eye Exam: EOMI, Normal appearance - ENT Exam ENT Exam: Mucous Membranes Moist, Normal Exam - Respiratory Exam Respiratory Exam: Clear to Ausculation Bilateral, NORMAL BREATHING PATTERN. absent: Rales, Rhonchi, Wheezes, Respiratory Distress - Cardiovascular Exam Cardiovascular Exam: REGULAR RHYTHM, +S1, +S2 - GI/Abdominal Exam GI & Abdominal Exam: Soft, Normal Bowel Sounds. absent: Guarding, Rigid, Tenderness, Organomegaly Additional comments: obese - Extremities Exam Extremities Exam: absent: Joint Swelling, Pedal Edema - Neurological Exam Neurological Exam: Alert, Awake, Oriented x3 - Psychiatric Exam Psychiatric exam: Normal Affect, Normal Mood - Skin Skin Exam: Dry, Intact, Normal Color, Warm Assessment and Plan - Assessment and Plan (Free Text) Assessment: Jun Blue is a 57M w/ hx of HTN who presents to the Ed wirg abd pain. Etiology was found to be likely 2/2 pancreatitis. Etiology of acute pancreatitis is likely gallstone induced, r/o TG and IGG4 Acute pancreatitis, etiology likely gallstone, r/o IGG4 an TG Cholelithiasis Elevated LFTs, likely 2/2 passed stone vs pancreatitis, r/o viral hep, autoimmune Obese Plan: -continue clears -CBD is 3mm on U/S , nikko passed stoned -MRCP done, waiting on results -LFTs trending down, likely 2/2 passed stone -surgery consulted, planned for OR for possible Lap yareli -continue with LR @ 150ml/hr -recommend oupt EGD and colonoscopy -continue PPI -will continue to follow D/W Dr. Dickens <Simone Dickens MD - Last Filed: 10/08/17 11:13> Objective - Vital Signs/Intake and Output Vital Signs (last 24 hours): Temp Pulse Resp BP Pulse Ox 98.1 F 81 18 133/83 96 10/08/17 08:00 10/08/17 10:05 10/08/17 08:00 10/08/17 10:05 10/08/17 08:00 - Medications Medications: Current Medications Acetaminophen (Tylenol 325mg Tab) 650 mg PO Q6 PRN PRN Reason: Pain, Mild (1-3) Amlodipine Besylate (Norvasc) 2.5 mg PO DAILY [facility] Last Admin: 10/08/17 09:28 Dose: 2.5 mg Enoxaparin Sodium (Lovenox) 40 mg SC DAILY [facility] PRN Reason: Protocol Last Admin: 10/08/17 09:27 Dose: 40 mg Home Med (Dorzolamide 2%/Timolol 0.5% [Cosopt 2%-0.5% Opht]) 1 drop OU BID [facility] Last Admin: 10/08/17 09:25 Dose: 1 drop Hydromorphone HCl (Dilaudid) 1 mg IVP Q4 PRN PRN Reason: Pain, severe (8-10) Hydromorphone HCl (Dilaudid) 0.5 mg IVP Q6H PRN PRN Reason: Pain, moderate (4-7) Last Admin: 10/08/17 04:41 Dose: 0.5 mg Lactated Ringer's (Lactated Ringer's) 1,000 mls @ 150 mls/hr IV .Q6H40M [facility] Last Admin: 10/08/17 03:50 Dose: 150 mls/hr Latanoprost (Xalatan Opht) 1 drop OU HS [facility] Last Admin: 10/07/17 21:16 Dose: 1 drop Metoprolol Tartrate (Lopressor) 50 mg PO Q12 [facility] Last Admin: 10/08/17 10:05 Dose: 50 mg - Labs Labs: 10/07/17 04:20 10/08/17 04:30 PT 13.2 Seconds (9.8-13.1) H 10/07/17 11:33 INR 1.2 (0.9-1.2) 10/07/17 11:33 APTT 38.2 Seconds (25.6-37.1) H 10/07/17 11:33 Attending/Attestation - Attestation I have personally seen and examined this patient.: Yes I have fully participated in the care of the patient.: Yes I have reviewed all pertinent clinical information, including history, physical exam and plan: Yes Notes (Text): 10/08/17 11:04 Patient seen earlier today with GI fellow. This is a 57 yr old M with history of HTN who presents to the ER with abdominal pain in setting of acute uncomplicated pancreatitis in background of cholelithiasis. Etiology of acute pancreatitis is likely gallstone induced with LFT downtrending and normalization of total bilirubin. Abdominal sonogram shows CBD of 3 mm. MRCP pictures with no CBD dilatation and no gallstone in CBD. Likely passed bile duct stone. Manage pancreatitis with IVF of 150 cc/hr and advance diet as tolerated. Follow surgical recommendations for CCY. DVT prophylaxis. Will follow as outpatient for colonoscopy and EGD
--- NOTE | 2017-10-08 11:02 | MRI ---
PROCEDURE: Magnetic Resonance Cholangiopancreatography HISTORY: COMPARISON: None available. TECHNIQUE: Multiplanar, multisequence MR images of the abdomen were obtained, including heavily T2 weighted MRCP images of the biliary system. Rotating maximum intensity projection images of the biliary system were generated. FINDINGS: MRCP: The common bile duct is of a normal caliber. No evidence of choledocholithiasis. No intrahepatic biliary ductal dilatation. LIVER: Left hepatic lobe 1.4 cm benign-appearing cyst suggested. No dilated ducts. GALLBLADDER: Multiple gallstones within the gallbladder noted. Gallbladder wall appears grossly unremarkable. No gross pericholecystic fluid suggested SPLEEN: Unremarkable. PANCREAS: Unremarkable. ADRENALS: Unremarkable. KIDNEYS: 6 to 7 mm eft lower renal pole intra cortical benign-appearing cyst. No hydronephrosis No suspect renal masses AORTA: No aneurysm. ASCITES: None. OTHER FINDINGS: None. IMPRESSION: No choledocholithiasis. No stricture or irregular caliber contour . Unremarkable appearing pancreatic duct Gallstones within the gallbladder. No gallbladder wall gross thickening or pericholecystic fluid suggested. No dilated intra or extrahepatic bile ducts Benign-appearing cyst s: left hepatic lobe and left lower renal pole Comments: Preliminary report provided by [employer]
--- NOTE | 2017-10-08 11:57 | CARD ---
APPROVED REPORT EXAM: Two-dimensional and M-mode echocardiogram with Doppler and color Doppler. Other Information Quality : GoodRhythm : NSR Technically limited study due to body habitus. INDICATION Dyspnea 2D DIMENSIONS Left Atrium (2D)4.14 (1.6-4.0cm)IVSd1.31 (0.7-1.1cm) Aortic Root (2D)3.46 (2.0-3.7cm)LVDd3.71 (3.9-5.9cm) LVOT Diameter1.81 (1.8-2.4cm)PWd1.70 (0.7-1.1cm) IVSs1.56 (0.8-1.2cm)LVDs3.15 (2.5-4.0cm) FS (%) 15.3 %PWs1.87 (0.8-1.2cm) M-Mode DIMENSIONS Left Atrium (MM)4.56 (2.5-4.0cm)IVSd0.72 (0.7-1.1cm) Aortic Root3.40 (2.2-3.7cm)LVDd5.72 (4.0-5.6cm) Aortic Cusp Exc.2.08 (1.5-2.0cm)PWd1.40 (0.7-1.1cm) IVSs1.60 cmFS (%) 41 % LVDs3.36 (2.0-3.8cm)PWs1.64 cm Mitral Valve MV E Kbfchhal10.0cm/sMV DECEL [id number] A Kndemthf23.7cm/s MV TVU76smQ/A ratio1.3MVA (PHT)5.72cm2 TDI Lateral E' Peak V9.21cm/sMedial E' Peak V14.75cm/sE/Lateral E'9.7 E/Medial E'6.0 Pulmonary Valve PV Peak Vomdycdb34.1cm/s Tricuspid Valve TR Peak Aakknydh428lf/sRAP [id number] Peak Gr.18mmHg [id number] LEFT VENTRICLE The left ventricle is normal size. There is normal left ventricular wall thickness. The systolic function is moderately impaired. The Ejection Fraction is 35-40%. There is global hypokinesis of the left ventricle. The left ventricular diastolic function is normal. No left ventricle thrombus noted on this study. RIGHT VENTRICLE The right ventricle is normal size. There is normal right ventricular wall thickness. The right ventricular systolic function is normal. ATRIA The left atrium size is normal. The right atrium size is normal. The interatrial septum is intact with no evidence for an atrial septal defect. AORTIC VALVE The aortic valve is normal in structure. No aortic regurgitation is present. There is no aortic valvular stenosis. There is no aortic valvular vegetation. MITRAL VALVE The mitral valve is normal in structure. There is no evidence of mitral valve prolapse. There is no mitral valve stenosis. There is no mitral valve regurgitation noted. TRICUSPID VALVE The tricuspid valve is normal in structure. There is no tricuspid valve regurgitation noted. There is no tricuspid valve prolapse or vegetation. There is no tricuspid valve stenosis. PULMONIC VALVE The pulmonary valve is normal in structure. There is no pulmonic valvular regurgitation. There is no pulmonic valvular stenosis. GREAT VESSELS The aortic root is normal in size. The IVC is normal in size and collapses >50% with inspiration. PERICARDIAL EFFUSION The pericardium appears normal. <Conclusion> The left ventricle is normal size. The systolic function is moderately impaired. The Ejection Fraction is 35-40%. There is global hypokinesis of the left ventricle.
[2017-10-08 12:22] LABS: HEPATITIS B SURFACE AG NEGATIVE (NEGATIVE)
[2017-10-08 12:29] LABS: HEPATITIS A IGM NEGATIVE (NEGATIVE); HEPATITIS B CORE AB Negative (NEGATIVE)
[2017-10-08 12:41] LABS: HEPATITIS C ANTIBODY Negative (NEGATIVE)
--- NOTE | 2017-10-08 14:23 | CP.PCM.PN ---
Addendum entered and electronically signed by Eduardo Pickett DO 10/08/17 14: 36: correction: pt cleared for OR by cardio Original Note: <Eduardo Pickett - Last Filed: 10/08/17 14:29> Subjective - Date & Time of Evaluation Date of Evaluation: 10/08/17 Time of Evaluation: 14:29 - Subjective Subjective: General Surgery: Dr Sanchez Pt S&E. NAEO. Resting comfortably. Reports epigastric pain 4/10 but improving. Has had BM. Tolerating CLD. Denies f/c, n/v, sob. Seen by cardiology. EF 35-40%. Objective - Vital Signs/Intake and Output Vital Signs (last 24 hours): Temp Pulse Resp BP Pulse Ox 97.9 F 65 18 149/90 97 10/08/17 12:00 10/08/17 12:00 10/08/17 12:00 10/08/17 12:00 10/08/17 12:00 - Medications Medications: Current Medications Acetaminophen (Tylenol 325mg Tab) 650 mg PO Q6 PRN PRN Reason: Pain, Mild (1-3) Amlodipine Besylate (Norvasc) 2.5 mg PO DAILY [facility] Last Admin: 10/08/17 09:28 Dose: 2.5 mg Enoxaparin Sodium (Lovenox) 40 mg SC DAILY [facility] PRN Reason: Protocol Last Admin: 10/08/17 09:27 Dose: 40 mg Home Med (Dorzolamide 2%/Timolol 0.5% [Cosopt 2%-0.5% Opht]) 1 drop OU BID [facility] Last Admin: 10/08/17 09:25 Dose: 1 drop Hydromorphone HCl (Dilaudid) 1 mg IVP Q4 PRN PRN Reason: Pain, severe (8-10) Hydromorphone HCl (Dilaudid) 0.5 mg IVP Q6H PRN PRN Reason: Pain, moderate (4-7) Last Admin: 10/08/17 04:41 Dose: 0.5 mg Lactated Ringer's (Lactated Ringer's) 1,000 mls @ 150 mls/hr IV .Q6H40M [facility] Last Admin: 10/08/17 11:16 Dose: 150 mls/hr Latanoprost (Xalatan Opht) 1 drop OU HS [facility] Last Admin: 10/07/17 21:16 Dose: 1 drop Metoprolol Tartrate (Lopressor) 50 mg PO Q12 [facility] Last Admin: 10/08/17 10:05 Dose: 50 mg - Labs Labs: 10/07/17 04:20 10/08/17 04:30 PT 13.2 Seconds (9.8-13.1) H 10/07/17 11:33 INR 1.2 (0.9-1.2) 10/07/17 11:33 APTT 38.2 Seconds (25.6-37.1) H 10/07/17 11:33 - Constitutional Appears: Non-toxic, No Acute Distress - ENT Exam ENT Exam: Mucous Membranes Moist - Respiratory Exam Respiratory Exam: absent: Accessory Muscle Use, Respiratory Distress - Cardiovascular Exam Cardiovascular Exam: REGULAR RHYTHM. absent: Tachycardia - GI/Abdominal Exam GI & Abdominal Exam: Soft, Tenderness (epigastric). absent: Distended, Firm, Guarding - Extremities Exam Extremities Exam: absent: Pedal Edema - Neurological Exam Neurological Exam: Alert, Awake, Oriented x3 - Psychiatric Exam Psychiatric exam: Normal Affect, Normal Mood - Skin Skin Exam: Normal Color, Warm Assessment and Plan - Assessment and Plan (Free Text) Assessment: 57F with gallstone pancreatitis Plan: cont CLD (do not advance please) cont IV hydration plan for laparoscopic cholecystectomy friday cardiac consultation appreciated, pt needs definitive cardiac risk stratification prior to OR will d/w Dr Laura Pickett, PGY3 <Gray Sanchez B - Last Filed: 10/09/17 13:07> Objective - Vital Signs/Intake and Output Vital Signs (last 24 hours): Temp Pulse Resp BP Pulse Ox 97.4 F L 60 19 148/90 95 10/09/17 07:57 10/09/17 08:39 10/09/17 07:57 10/09/17 08:39 10/09/17 07:57 - Medications Medications: Current Medications Acetaminophen (Tylenol 325mg Tab) 650 mg PO Q6 PRN PRN Reason: Pain, Mild (1-3) Amlodipine Besylate (Norvasc) 2.5 mg PO DAILY [facility] Last Admin: 10/09/17 08:39 Dose: 2.5 mg Enoxaparin Sodium (Lovenox) 40 mg SC DAILY [facility] PRN Reason: Protocol Last Admin: 10/09/17 08:39 Dose: 40 mg Home Med (Dorzolamide 2%/Timolol 0.5% [Cosopt 2%-0.5% Opht]) 1 drop OU BID [facility] Last Admin: 10/09/17 08:37 Dose: 1 drop Hydromorphone HCl (Dilaudid) 1 mg IVP Q4 PRN PRN Reason: Pain, severe (8-10) Hydromorphone HCl (Dilaudid) 0.5 mg IVP Q6H PRN PRN Reason: Pain, moderate (4-7) Last Admin: 10/09/17 06:06 Dose: 0.5 mg Lactated Ringer's (Lactated Ringer's) 1,000 mls @ 150 mls/hr IV .Q6H40M [facility] Last Admin: 10/08/17 22:00 Dose: Not Given Latanoprost (Xalatan Opht) 1 drop OU HS [facility] Last Admin: 10/08/17 21:52 Dose: 1 drop Metoprolol Tartrate (Lopressor) 50 mg PO Q12 [facility] Last Admin: 10/09/17 08:38 Dose: 50 mg - Labs Labs: 10/09/17 06:15 10/09/17 06:15 PT 13.2 Seconds (9.8-13.1) H 10/07/17 11:33 INR 1.2 (0.9-1.2) 10/07/17 11:33 APTT 38.2 Seconds (25.6-37.1) H 10/07/17 11:33 Attending/Attestation - Attestation I have personally seen and examined this patient.: Yes I have fully participated in the care of the patient.: Yes I have reviewed all pertinent clinical information, including history, physical exam and plan: Yes Notes (Text): Pt was seen and examined at bedside Agree with above note and assessment Pt with Resolving GS pancreatitis Pt is tolerating liquid diet Abdomen: minimally tender Labs reviewed MRCP : NO evidence of CBD stones Repeat LFT is tomorrow Cardiology clearance Lap Cholecystectomy after clearance Plan d.w pt in detail.
[2017-10-08] MEDS: Potassium Chloride 20 mEq/15 ml LIQ UD PO SCH ×2 (18:19→21:31)
[2017-10-08 19:29] LABS: BLOOD UREA NITROGEN 5 mg/dl (7-17); CALCIUM 9.5 mg/dL (8.4-10.2); GFR AFRICAN-AMERICAN > 60; GFR NON-AFRICAN AMERICAN > 60
[2017-10-08] MEDS: Latanoprost 0.005% Opht SOUTION OU SCH (21:52)
--- NOTE | 2017-10-08 22:50 | CP.PCM.PN ---
Subjective - Date & Time of Evaluation Date of Evaluation: 10/08/17 Time of Evaluation: 16:25 - Subjective Subjective: Seen and Examined at the bed side. Continues to have abdominal but better. I have a long Conversation about the TTE finding and MRCP finding Objective - Vital Signs/Intake and Output Vital Signs (last 24 hours): Temp Pulse Resp BP Pulse Ox 97.9 F 68 15 140/92 H 98 10/08/17 19:13 10/08/17 21:31 10/08/17 19:13 10/08/17 21:31 10/08/17 19:13 - Medications Medications: Current Medications Acetaminophen (Tylenol 325mg Tab) 650 mg PO Q6 PRN PRN Reason: Pain, Mild (1-3) Amlodipine Besylate (Norvasc) 2.5 mg PO DAILY [facility] Last Admin: 10/08/17 09:28 Dose: 2.5 mg Enoxaparin Sodium (Lovenox) 40 mg SC DAILY [facility] PRN Reason: Protocol Last Admin: 10/08/17 09:27 Dose: 40 mg Home Med (Dorzolamide 2%/Timolol 0.5% [Cosopt 2%-0.5% Opht]) 1 drop OU BID [facility] Last Admin: 10/08/17 19:22 Dose: 1 drop Hydromorphone HCl (Dilaudid) 1 mg IVP Q4 PRN PRN Reason: Pain, severe (8-10) Hydromorphone HCl (Dilaudid) 0.5 mg IVP Q6H PRN PRN Reason: Pain, moderate (4-7) Last Admin: 10/08/17 04:41 Dose: 0.5 mg Lactated Ringer's (Lactated Ringer's) 1,000 mls @ 150 mls/hr IV .Q6H40M [facility] Last Admin: 10/08/17 19:27 Dose: 150 mls/hr Latanoprost (Xalatan Opht) 1 drop OU HS [facility] Last Admin: 10/08/17 21:52 Dose: 1 drop Metoprolol Tartrate (Lopressor) 50 mg PO Q12 [facility] Last Admin: 10/08/17 21:31 Dose: 50 mg - Labs Labs: 10/07/17 04:20 10/08/17 19:06 PT 13.2 Seconds (9.8-13.1) H 10/07/17 11:33 INR 1.2 (0.9-1.2) 10/07/17 11:33 APTT 38.2 Seconds (25.6-37.1) H 10/07/17 11:33 - Additional Findings Additional findings: -TTE: EF 35-40%, Left Ventricular Hypokinetic. -Magnetic Resonance Cholangiopancreatography: HISTORY: COMPARISON: None available. TECHNIQUE: Multiplanar, multisequence MR images of the abdomen were obtained, including heavily T2 weighted MRCP images of the biliary system. Rotating maximum intensity projection images of the biliary system were generated. FINDINGS: MRCP: The common bile duct is of a normal caliber. No evidence of Choledocholithiasis. No intrahepatic biliary ductal dilatation. LIVER: Left hepatic lobe 1.4 cm benign-appearing cyst suggested. No dilated ducts. GALLBLADDER: Multiple gallstones within the gallbladder noted. Gallbladder wall appears grossly unremarkable. No gross pericholecystic fluid suggested SPLEEN: Unremarkable. PANCREAS: Unremarkable. ADRENALS: Unremarkable. KIDNEYS: 6 to 7 mm eft lower renal pole intra cortical benign-appearing cyst. No hydronephrosis No suspect renal masses AORTA: No aneurysm. ASCITES: None. OTHER FINDINGS: None. IMPRESSION: No Choledocholithiasis. No stricture or irregular caliber contour . Unremarkable appearing pancreatic duct Gallstones within the gallbladder. No gallbladder wall gross thickening or pericholecystic fluid suggested. No dilated intra or extrahepatic bile ducts Benign-appearing cyst s: left hepatic lobe and left lower renal pole Assessment and Plan (1) Gallstone pancreatitis Assessment & Plan: Liapse and Abnormal LFT trending down clear Liquid Diet IVF Pain Medication PRN Zofran PRN Repeat Lipase, BMP and CBC with D GI and Surgery Consulted, and Onboard Status: Acute Priority: High (2) Chronic abdominal pain Assessment and Plan: Most Likely Biliary Colick Status: Acute Priority: Medium (3) Exertional Dyspnea, Cardiomyopathy with EF 35-40% ?Etiology (CAD VS HHD) Assessment and Plan: Severe Obese R/O Hypertensive Heart Disease Vs Stable Anginal Cardiology Clearance reuqested. (4) HTN, Primary Fairly Controlled. Status: Chronic
[2017-10-09 06:49] LABS: HEMOGLOBIN 12.4 g/dL (12.0-16.0); MEAN CELL VOLUME 89.8 fl (81.0-99.0); MEAN CORPUSCULAR HEMOGLOBIN 29.3 pg (27.0-31.0); MEAN CORPUSCULAR HGB CONC 32.6 g/dL (33.0-37.0); RBC 4.25 Mil/uL (3.80-5.20); RED CELL DISTRIBUTION WIDTH 13.6 % (11.5-14.5); WHITE BLOOD COUNT 7.9 K/uL (4.8-10.8)
[2017-10-09 07:07] LABS: ALBUMIN 3.6 g/dL (3.5-5.0); ALT/SGPT 368 U/L (9-52); AST/SGOT 59 U/L (14-36); BLOOD UREA NITROGEN 4 mg/dl (7-17); CALCIUM 9.3 mg/dL (8.4-10.2); GFR AFRICAN-AMERICAN > 60; GFR NON-AFRICAN AMERICAN > 60
--- NOTE | 2017-10-09 07:32 | PN ---
DATE: SUBJECTIVE: The patient denies any chest pain or shortness of breath. Abdominal pain has improved. She tolerated liquid diet. PHYSICAL EXAMINATION VITAL SIGNS: Blood pressure 149/90, heart rate 65, temperature 97.9, respirations 18. HEENT: Normocephalic. CHEST: Clear. HEART: S1, S2 regular. ABDOMEN: Right subcostal tenderness. EXTREMITIES: No edema. LABORATORY DATA: SMA-7: Sodium 144, potassium 3.1, chloride 108, CO2 of 25, glucose 83, BUN 6, creatinine 0.6. AST and ALT are 97 and 479 respectively. Alkaline phosphatase is 440. LDL cholesterol is 205. Lipase 717, which is significant improvement compared to yesterday and the day before yesterday. Hepatitis profile is negative. MRCP revealed no choledocholithiasis. No stricture or irregular caliber contour. Unremarkable-appearing pancreatic duct. Gallstones within the gallbladder. No gallbladder wall gross thickening or pericholecystic fluid suggested. Official echocardiographic study report revealed moderately impaired systolic function, ejection fraction estimated between 35% and 40%, global hypokinesis although my initial impression yesterday was septal and apical hypokinesis. ASSESSMENT: 1. Moderately depressed ejection fraction. 2. Hypertension. 3. Acute cholecystitis with cholelithiasis. 4. Improving pancreatitis. 5. Hypokalemia. RECOMMENDATIONS: Continue IV Dilaudid at 1 mg q.4 hours p.r.n., continue Lopressor a day, Lovenox 40 mg subcutaneously once a day, Norvasc at 2.5 mg once a day. The patient did receive IV potassium chloride replacement. I will obtain a followup chemistry at 4:00 p.m. I discussed the issue with the patient and with the primary physician, Dr. Chase. From the cardiac point, the patient can undergo laparoscopic cholecystectomy with postoperative ICU monitoring. Cardiac catheterization should be postponed until acute abdominal issues are stable as any cardiac intervention would require anticoagulation and antiplatelet therapy, which can worsen pancreatitis. Lucian Fountain MD
--- NOTE | 2017-10-09 08:31 | CP.PCM.PN ---
<Pedro Lassiter - Last Filed: 10/09/17 08:34> Subjective - Date & Time of Evaluation Date of Evaluation: 10/09/17 Time of Evaluation: 08:15 - Subjective Subjective: PGY 4 GI Follow-up Pt seen and examined bedside No active complaints Had an episode of lightheadedness yesterday after IV pain med Tolerating diet ROS: 10 point ROS conducted, neg other than above Objective - Vital Signs/Intake and Output Vital Signs (last 24 hours): Temp Pulse Resp BP Pulse Ox 97.4 F L 59 L 19 148/90 95 10/09/17 07:57 10/09/17 07:57 10/09/17 07:57 10/09/17 07:57 10/09/17 07:57 - Medications Medications: Current Medications Acetaminophen (Tylenol 325mg Tab) 650 mg PO Q6 PRN PRN Reason: Pain, Mild (1-3) Amlodipine Besylate (Norvasc) 2.5 mg PO DAILY [facility] Last Admin: 10/08/17 09:28 Dose: 2.5 mg Enoxaparin Sodium (Lovenox) 40 mg SC DAILY [facility] PRN Reason: Protocol Last Admin: 10/08/17 09:27 Dose: 40 mg Home Med (Dorzolamide 2%/Timolol 0.5% [Cosopt 2%-0.5% Opht]) 1 drop OU BID [facility] Last Admin: 10/08/17 19:22 Dose: 1 drop Hydromorphone HCl (Dilaudid) 1 mg IVP Q4 PRN PRN Reason: Pain, severe (8-10) Hydromorphone HCl (Dilaudid) 0.5 mg IVP Q6H PRN PRN Reason: Pain, moderate (4-7) Last Admin: 10/09/17 06:06 Dose: 0.5 mg Lactated Ringer's (Lactated Ringer's) 1,000 mls @ 150 mls/hr IV .Q6H40M [facility] Last Admin: 10/08/17 22:00 Dose: Not Given Latanoprost (Xalatan Opht) 1 drop OU HS [facility] Last Admin: 10/08/17 21:52 Dose: 1 drop Metoprolol Tartrate (Lopressor) 50 mg PO Q12 [facility] Last Admin: 10/08/17 21:31 Dose: 50 mg - Labs Labs: 10/09/17 06:15 10/09/17 06:15 PT 13.2 Seconds (9.8-13.1) H 10/07/17 11:33 INR 1.2 (0.9-1.2) 10/07/17 11:33 APTT 38.2 Seconds (25.6-37.1) H 10/07/17 11:33 - Constitutional Appears: Well, No Acute Distress - Head Exam Head Exam: ATRAUMATIC, NORMOCEPHALIC - Eye Exam Eye Exam: Normal appearance - ENT Exam ENT Exam: Mucous Membranes Moist - Respiratory Exam Respiratory Exam: Clear to Ausculation Bilateral, NORMAL BREATHING PATTERN. absent: Rales, Rhonchi, Wheezes, Respiratory Distress - Cardiovascular Exam Cardiovascular Exam: REGULAR RHYTHM, +S1, +S2, Murmur - GI/Abdominal Exam GI & Abdominal Exam: Soft, Tenderness (left upper quad and right upper quad), Normal Bowel Sounds. absent: Guarding, Organomegaly - Extremities Exam Extremities Exam: absent: Joint Swelling, Pedal Edema - Neurological Exam Neurological Exam: Alert, Awake, Oriented x3 - Psychiatric Exam Psychiatric exam: Normal Affect, Normal Mood - Skin Skin Exam: Dry, Intact, Normal Color, Warm Assessment and Plan - Assessment and Plan (Free Text) Assessment: Jun Blue is a 57M w/ hx of HTN who presents to the Ed wirg abd pain. Etiology was found to be likely 2/2 pancreatitis. Etiology of acute pancreatitis is likely gallstone induced, r/o IGG4 Acute pancreatitis, etiology likely gallstone, r/o IGG4 Cholelithiasis Elevated LFTs, likely 2/2 passed stone vs pancreatitis Obese Plan: -continue clears -CBD is 3mm on U/S , nikko passed stoned -LFTs trending down, likely 2/2 passed stone -surgery consulted, planned for OR for possible Lap yareli on friday -continue with LR @ 150ml/hr -recommend oupt EGD and colonoscopy -continue PPI -will continue to follow -cleared by cardio for procedure D/W Dr. Dickens <Simone Dickens MD - Last Filed: 10/09/17 16:27> Objective - Vital Signs/Intake and Output Vital Signs (last 24 hours): Temp Pulse Resp BP Pulse Ox 98.2 F 73 18 148/90 93 L 10/09/17 16:23 10/09/17 16:23 10/09/17 16:23 10/09/17 08:39 10/09/17 16:23 - Medications Medications: Current Medications Acetaminophen (Tylenol 325mg Tab) 650 mg PO Q6 PRN PRN Reason: Pain, Mild (1-3) Amlodipine Besylate (Norvasc) 2.5 mg PO DAILY [facility] Last Admin: 10/09/17 08:39 Dose: 2.5 mg Enoxaparin Sodium (Lovenox) 40 mg SC DAILY [facility] PRN Reason: Protocol Last Admin: 10/09/17 08:39 Dose: 40 mg Home Med (Dorzolamide 2%/Timolol 0.5% [Cosopt 2%-0.5% Opht]) 1 drop OU BID [facility] Last Admin: 10/09/17 08:37 Dose: 1 drop Hydromorphone HCl (Dilaudid) 1 mg IVP Q4 PRN PRN Reason: Pain, severe (8-10) Hydromorphone HCl (Dilaudid) 0.5 mg IVP Q6H PRN PRN Reason: Pain, moderate (4-7) Last Admin: 10/09/17 06:06 Dose: 0.5 mg Lactated Ringer's (Lactated Ringer's) 1,000 mls @ 150 mls/hr IV .Q6H40M [facility] Last Admin: 10/08/17 22:00 Dose: Not Given Latanoprost (Xalatan Opht) 1 drop OU HS [facility] Last Admin: 10/08/17 21:52 Dose: 1 drop Metoprolol Tartrate (Lopressor) 50 mg PO Q12 [facility] Last Admin: 10/09/17 08:38 Dose: 50 mg - Labs Labs: 10/09/17 06:15 10/09/17 06:15 PT 13.2 Seconds (9.8-13.1) H 10/07/17 11:33 INR 1.2 (0.9-1.2) 10/07/17 11:33 APTT 38.2 Seconds (25.6-37.1) H 10/07/17 11:33 Attending/Attestation - Attestation I have personally seen and examined this patient.: Yes I have fully participated in the care of the patient.: Yes I have reviewed all pertinent clinical information, including history, physical exam and plan: Yes Notes (Text): 10/09/17 16:26 Patient seen earlier today with GI fellow. This is a 57 yr old M with history of HTN who presents to the ER with abdominal pain in setting of acute uncomplicated pancreatitis in background of cholelithiasis. Etiology of acute pancreatitis is likely gallstone induced with LFT downtrending and normalization of total bilirubin. Abdominal sonogram shows CBD of 3 mm. MRCP pictures with no CBD dilatation and no gallstone in CBD. Likely passed bile duct stone. Manage pancreatitis with IVF of 150 cc/hr and advance diet as tolerated. Follow surgical recommendations for CCY. DVT prophylaxis. Will follow as outpatient for colonoscopy and EGD. Thank you for letting us participate in the care of your patient
[2017-10-09] MEDS: Patient's Own Med (Dorzolamide 2%/Timolol 0.5% [Cosopt 2%-0.5% Opht] 1 DROP) OU SCH ×2 (08:37→16:58)
[2017-10-09] MEDS: Enoxaparin 40 mg Syringe SC SCH (08:39)
[2017-10-09] MEDS ORDERED: Potassium Chloride 20 mEq ER Tab PO ONE (09:48)
--- NOTE | 2017-10-09 09:52 | CP.PCM.PN ---
Subjective - Date & Time of Evaluation Date of Evaluation: 10/09/17 Time of Evaluation: 07:20 - Subjective Subjective: General surgery progress note for Dr. Nicole Beatty, PGY-1 Pt S & E at bedside. Pt comfortable, reports resolution of ab pain, no complaints. Tolerating CLD. Objective - Vital Signs/Intake and Output Vital Signs (last 24 hours): Temp Pulse Resp BP Pulse Ox 97.4 F L 60 19 148/90 95 10/09/17 07:57 10/09/17 08:39 10/09/17 07:57 10/09/17 08:39 10/09/17 07:57 - Medications Medications: Current Medications Acetaminophen (Tylenol 325mg Tab) 650 mg PO Q6 PRN PRN Reason: Pain, Mild (1-3) Amlodipine Besylate (Norvasc) 2.5 mg PO DAILY [facility] Last Admin: 10/09/17 08:39 Dose: 2.5 mg Enoxaparin Sodium (Lovenox) 40 mg SC DAILY [facility] PRN Reason: Protocol Last Admin: 10/09/17 08:39 Dose: 40 mg Home Med (Dorzolamide 2%/Timolol 0.5% [Cosopt 2%-0.5% Opht]) 1 drop OU BID [facility] Last Admin: 10/09/17 08:37 Dose: 1 drop Hydromorphone HCl (Dilaudid) 1 mg IVP Q4 PRN PRN Reason: Pain, severe (8-10) Hydromorphone HCl (Dilaudid) 0.5 mg IVP Q6H PRN PRN Reason: Pain, moderate (4-7) Last Admin: 10/09/17 06:06 Dose: 0.5 mg Lactated Ringer's (Lactated Ringer's) 1,000 mls @ 150 mls/hr IV .Q6H40M [facility] Last Admin: 10/08/17 22:00 Dose: Not Given Latanoprost (Xalatan Opht) 1 drop OU HS [facility] Last Admin: 10/08/17 21:52 Dose: 1 drop Metoprolol Tartrate (Lopressor) 50 mg PO Q12 [facility] Last Admin: 10/09/17 08:38 Dose: 50 mg Potassium Chloride (K-Dur 20 Meq Er Tab) 20 meq PO ONCE ONE Stop: 10/09/17 09:49 - Labs Labs: 10/09/17 06:15 10/09/17 06:15 PT 13.2 Seconds (9.8-13.1) H 10/07/17 11:33 INR 1.2 (0.9-1.2) 10/07/17 11:33 APTT 38.2 Seconds (25.6-37.1) H 10/07/17 11:33 - Constitutional Appears: Non-toxic, No Acute Distress - Head Exam Head Exam: ATRAUMATIC, NORMAL INSPECTION, NORMOCEPHALIC - Eye Exam Eye Exam: EOMI, Normal appearance - ENT Exam ENT Exam: Mucous Membranes Moist, Normal Exam - Neck Exam Neck Exam: Full ROM, Normal Inspection - Respiratory Exam Respiratory Exam: NORMAL BREATHING PATTERN - Cardiovascular Exam Cardiovascular Exam: REGULAR RHYTHM, +S1, +S2 - GI/Abdominal Exam GI & Abdominal Exam: Soft. absent: Distended (obese), Tenderness - Neurological Exam Neurological Exam: Alert, Awake, CN II-XII Intact, Oriented x3 - Psychiatric Exam Psychiatric exam: Normal Affect, Normal Mood - Skin Skin Exam: Dry, Intact, Normal Color, Warm Assessment and Plan - Assessment and Plan (Free Text) Assessment: 57F with gallstone pancreatitis Plan: Cont CLD today NPO after MN Hold Lovenox after MN Cont IVF Cleared by cardio for OR Plan for OR tomorrow for william ROLDAN attending Jaci, PGY-1
[2017-10-09] MEDS: Lactated Ringer's 1,000 ML IV SCH ×2 (17:01→20:54)
--- NOTE | 2017-10-09 20:59 | PN ---
DATE: FOLLOWUP SUBJECTIVE: The patient denies any chest pain. Feels slight abdominal discomfort. PHYSICAL EXAMINATION: VITAL SIGNS: Blood pressure 184/92, heart rate 73, temperature 98.2, respirations 18. HEENT: Normocephalic. CHEST: Clear. HEART: S1 and S2 regular. EXTREMITIES: No edema. LABORATORY DATA: Today's potassium is 3.5 and BUN is 4. Rest of SMA-7 is within normal limit. Today's alkaline phosphatase is 376. ASSESSMENT: 1. Acalculous cholecystitis and pancreatitis. 2. Consider ischemic cardiomyopathy. 3. Hypertension. 4. Hypokalemia. RECOMMENDATIONS: The patient did receive K-Dur 20 mEq orally today. Continue current Lopressor 50 mg twice day, Lovenox 40 mg once a day, Norvasc 2.5 mg once a day. Obtain BNP and magnesium level in the a.m. Close perioperative blood pressure risk monitoring with postoperative ICU monitoring. Lucian Fountain MD
[2017-10-09] MEDS: Latanoprost 0.005% Opht SOUTION OU SCH (21:41)
[2017-10-10 05:49] LABS: HEMOGLOBIN 13.1 g/dL (12.0-16.0); MEAN CELL VOLUME 89.4 fl (81.0-99.0); MEAN CORPUSCULAR HGB CONC 32.4 g/dL (33.0-37.0); RBC 4.51 Mil/uL (3.80-5.20); RED CELL DISTRIBUTION WIDTH 13.7 % (11.5-14.5); WHITE BLOOD COUNT 8.7 K/uL (4.8-10.8)
[2017-10-10 06:09] LABS: AMYLASE 62 U/L (30-110); BLOOD UREA NITROGEN 5 mg/dl (7-17); CALCIUM 9.7 mg/dL (8.4-10.2); GFR AFRICAN-AMERICAN > 60; GFR NON-AFRICAN AMERICAN > 60; LIPASE 171 U/L (23-300); MAGNESIUM 1.7 MG/DL (1.6-2.3)
[2017-10-10] MEDS: Lactated Ringer's 1,000 ML IV SCH (06:30)
[2017-10-10] MEDS: Patient's Own Med (Dorzolamide 2%/Timolol 0.5% [Cosopt 2%-0.5% Opht] 1 DROP) OU SCH ×2 (08:13→16:33)
[2017-10-10] MEDS ORDERED: Potassium Chloride 20 MEQ in Sodium Chloride 0.45% 1,000 ML IV SCH (08:30)
[2017-10-10] MEDS ORDERED: Lidocaine 1% Inj (20ml) ONE ×2 (11:28→14:47)
[2017-10-10] MEDS ORDERED: cefOXitin IV 1 gm in Dextrose 0 GM/0 ML BAG IVPB ONE (11:28)
[2017-10-10] MEDS ORDERED: Bupivacaine 0.5% Inj(30mL) ONE (11:28)
[2017-10-10] MEDS ORDERED: ceFAZolin IV 1 gm in Dextrose 0 GM/0 ML BAG IVPB ONE (11:28)
--- NOTE | 2017-10-10 12:13 | CP.PCM.PCO ---
Physician Communication Note - Physician Communication Note Physician Communication Note: OR cancelled today- will do electively- for cardiac intervention Friday
--- NOTE | 2017-10-10 12:51 | CP.PCM.PN ---
Subjective - Date & Time of Evaluation Date of Evaluation: 10/10/17 Time of Evaluation: 12:49 - Subjective Subjective: General Surgery progress note for Dr. Sanchez This patient was seen and examined this Am at bedside. No acute events to report overnight. Pt denies any abdominal pain nausea vomiting diarrhea. Shortness of breath or chest pain. The decision was made to postpone the laparoscopic cholecystectomy until the patient has had a cardiac cath. Objective - Vital Signs/Intake and Output Vital Signs (last 24 hours): Temp Pulse Resp BP Pulse Ox 97.9 F 68 20 145/92 H 98 10/10/17 08:49 10/10/17 08:49 10/10/17 08:49 10/10/17 08:49 10/10/17 08:49 - Medications Medications: Current Medications Acetaminophen (Tylenol 325mg Tab) 650 mg PO Q6 PRN PRN Reason: Pain, Mild (1-3) Amlodipine Besylate (Norvasc) 2.5 mg PO DAILY [facility] Last Admin: 10/09/17 08:39 Dose: 2.5 mg Enoxaparin Sodium (Lovenox) 40 mg SC DAILY [facility] PRN Reason: Protocol Last Admin: 10/09/17 08:39 Dose: 40 mg Home Med (Dorzolamide 2%/Timolol 0.5% [Cosopt 2%-0.5% Opht]) 1 drop OU BID [facility] Last Admin: 10/10/17 08:13 Dose: 1 drop Hydromorphone HCl (Dilaudid) 1 mg IVP Q4 PRN PRN Reason: Pain, severe (8-10) Hydromorphone HCl (Dilaudid) 0.5 mg IVP Q6H PRN PRN Reason: Pain, moderate (4-7) Last Admin: 10/09/17 06:06 Dose: 0.5 mg Lactated Ringer's (Lactated Ringer's) 1,000 mls @ 150 mls/hr IV .Q6H40M [facility] Last Admin: 10/09/17 20:54 Dose: 150 mls/hr Potassium Chloride 20 meq/ (Sodium Chloride) 1,010 mls @ 100 mls/hr IV .Q10H6M [facility] Stop: 10/11/17 08:20 Latanoprost (Xalatan Opht) 1 drop OU HS [facility] Last Admin: 10/09/17 21:41 Dose: 1 drop Metoprolol Tartrate (Lopressor) 50 mg PO Q12 [facility] Last Admin: 10/10/17 08:12 Dose: 50 mg - Labs Labs: 10/10/17 05:20 10/10/17 05:20 PT 13.2 Seconds (9.8-13.1) H 10/07/17 11:33 INR 1.2 (0.9-1.2) 10/07/17 11:33 APTT 38.2 Seconds (25.6-37.1) H 10/07/17 11:33 - Constitutional Appears: Non-toxic, No Acute Distress - Head Exam Head Exam: ATRAUMATIC, NORMOCEPHALIC - Eye Exam Eye Exam: EOMI - ENT Exam ENT Exam: Mucous Membranes Moist - Respiratory Exam Respiratory Exam: NORMAL BREATHING PATTERN - Cardiovascular Exam Cardiovascular Exam: +S1, +S2 - GI/Abdominal Exam GI & Abdominal Exam: Soft. absent: Firm, Guarding, Tenderness - Extremities Exam Additional comments: LUE IV infiltrated - Neurological Exam Neurological Exam: Alert, Awake, Normal Gait - Psychiatric Exam Psychiatric exam: Normal Mood - Skin Skin Exam: Dry, Intact Assessment and Plan - Assessment and Plan (Free Text) Assessment: This is a 57F who presented with pancreatitis and GB stones which has since resolved. Pt had an abdnormal echo suspicious for ischemic cardiomyoptahty. Cardiology will do a cardiac cath will follow up results Will plan for lap yareli after cardiac catheterization possibly as outpatient depending on antiplatelt or coagulation therapy needs. D/W Dr. Laura Castro PGY2
[2017-10-10] MEDS ORDERED: Potassium Chloride 20 mEq ER Tab PO ONE (13:34)
--- NOTE | 2017-10-10 15:43 | PCM.SURG1 ---
Surgeon's Initial Post Op Note - Surgeon's Notes Surgeon: Tanner Berger MD [place]: None Type of Anesthesia: Local Pre-Operative Diagnosis: antibiotics, pre-surgery access Operative Findings: patent right basilic vein Post-Operative Diagnosis: same Operation Performed: RUE PICC Insertion Specimen/Specimens Removed: N/A Estimated Blood Loss: EBL {In ML}: 0 Date of Surgery/Procedure: 10/10/17 Time of Surgery/Procedure: 15:15
--- NOTE | 2017-10-10 15:48 | VASCULAR ---
PROCEDURE: PERIPHERALLY INSERTED CENTRAL VENOUS CATHETER INSERTION CLINICAL HISTORY: 57-year-old female requiring intravenous antibiotics and intravenous access prior to surgery is referred to Interventional Radiology for PICC insertion. PROCEDURE: 1. Focused ultrasound of the right upper extremity vasculature. 2. Ultrasound-guided access. 3. Insertion of peripherally inserted central venous catheter. 4. Fluoroscopic localization of catheter tip. PRE-PROCEDURE FINDINGS: 1. Patent right basilic vein. POST-PROCEDURE FINDINGS: 1. Placement of 4 Lithuanian single-lumen PICC. 2. Catheter length: 44 cm. 3. Catheter tip at cavoatrial junction. INTERVENTIONAL RADIOLOGIST: Tanner Berger M.D. (the attending was present for the entire procedure) ANESTHESIA: None. MEDICATION: Lidocaine 1% for local subcutaneous analgesia. COMPLICATIONS: None. RADIATION DOSE: Fluoroscopy Time: 8.0 seconds Cumulative Dose: 1.1 mGy PROCEDURE DESCRIPTION AND FINDINGS: The risks, benefits, alternatives and possible complications of the procedure were fully discussed; all questions were answered and informed consent was obtained. The patient was brought into the interventional suite and a pre-procedure 'time-out' was performed. The patient was placed on the fluoroscopy table in the supine position. The right upper extremity was prepped and draped in the usual sterile fashion. Maximum sterile barrier precautions were maintained throughout the entire procedure. Preliminary ultrasound images of the right upper extremity vasculature demonstrate patency of the right basilic vein. Following subcutaneous infiltration of 1% lidocaine for local analgesia, under ultrasound guidance, a 21-gauge needle was advanced into the right basilic vein with real-time visualization of needle entry. The ultrasound images were permanently recorded and submitted to the PACS. A 0.018 guidewire was advanced centrally to the cavoatrial junction. A 4.5 Lithuanian peel-away sheath was advanced over the guidewire. After obtaining length measurement, a 4 Lithuanian single-lumen PICC was placed with the tip of the catheter at the cavoatrial junction. The total length of the catheter is 44 cm. The hub of the PICC was secured to the skin using a sterile adhesive bandage. The patient tolerated the procedure well without immediate post-procedure complications and was transferred back to the floor in stable condition. IMPRESSION: SUCCESSFUL INSERTION OF RIGHT UPPER EXTREMITY PICC. PICC OK TO USE.
--- NOTE | 2017-10-10 16:03 | PN ---
DATE: SUBJECTIVE: The patient denies any chest pain or abdominal pain. No dizziness or palpitation. PHYSICAL EXAMINATION: VITAL SIGNS: Blood pressure 145/92, heart rate 68, temperature 97.9, and respirations 20. HEENT: Normocephalic. CHEST: Clear. HEART: S1 and S2 regular. ABDOMEN: Soft. EXTREMITIES: No edema. LABORATORY DATA: Today's CBC; WBC 8.7, hemoglobin 13.1, hematocrit 40.3, platelet count 383,000. Today's SMA-7; sodium 144, potassium 3.4, chloride 102, CO2 of 36, glucose 88, BUN 5, creatinine 0.7. ASSESSMENT: 1. Cardiomyopathy. 2. Segmental hypokinesis suggestive of underlying coronary artery disease. 3. Hypertension. 4. Hypokalemia. 5. Pancreatitis on a background of cholelithiasis and cholecystitis. RECOMMENDATIONS: The patient was given this morning of 50 mg. The patient is also receiving 20 mEq of IV potassium chloride replacement. The patient will undergo surgery today. Close perioperative blood pressure and risk monitoring are recommended and postoperative ICU/telemetry. Lucian Fountain MD
[2017-10-10] MEDS: Enoxaparin 40 mg Syringe SC SCH (16:40)
[2017-10-10] MEDS: Latanoprost 0.005% Opht SOUTION OU SCH (21:53)
[2017-10-11 07:47] LABS: HEMOGLOBIN 12.6 g/dL (12.0-16.0); MEAN CELL VOLUME 89.7 fl (81.0-99.0); MEAN CORPUSCULAR HEMOGLOBIN 29.3 pg (27.0-31.0); MEAN CORPUSCULAR HGB CONC 32.6 g/dL (33.0-37.0); RBC 4.3 Mil/uL (3.80-5.20); RED CELL DISTRIBUTION WIDTH 13.7 % (11.5-14.5); WHITE BLOOD COUNT 8.6 K/uL (4.8-10.8)
[2017-10-11 08:09] LABS: ALBUMIN 3.7 g/dL (3.5-5.0); ALT/SGPT 224 U/L (9-52); AST/SGOT 37 U/L (14-36); BLOOD UREA NITROGEN 14 mg/dl (7-17); CALCIUM 9.6 mg/dL (8.4-10.2); GFR AFRICAN-AMERICAN > 60; GFR NON-AFRICAN AMERICAN > 60
[2017-10-11] MEDS: Enoxaparin 40 mg Syringe SC SCH (08:57)
[2017-10-11] MEDS: Patient's Own Med (Dorzolamide 2%/Timolol 0.5% [Cosopt 2%-0.5% Opht] 1 DROP) OU SCH ×2 (08:58→16:33)
--- NOTE | 2017-10-11 09:37 | CP.PCM.PN ---
Subjective - Date & Time of Evaluation Date of Evaluation: 10/11/17 Time of Evaluation: 08:50 - Subjective Subjective: General Surgeyr Dr. Sanchez Pt S&E @bedside. NAEO. Pt has no complaints this morning. Pt reports mild twinges of pain w/ PO intake but pain significantly improved from admission. Pt admits to mild SOB w/ exertion. Pt denies F/C, N/V. Tolerating diet. Objective - Vital Signs/Intake and Output Vital Signs (last 24 hours): Temp Pulse Resp BP Pulse Ox 98.0 F 68 20 140/83 98 10/11/17 08:10 10/11/17 08:58 10/11/17 08:10 10/11/17 08:58 10/11/17 08:10 - Medications Medications: Current Medications Acetaminophen (Tylenol 325mg Tab) 650 mg PO Q6 PRN PRN Reason: Pain, Mild (1-3) Amlodipine Besylate (Norvasc) 5 mg PO DAILY [facility] Last Admin: 10/11/17 08:58 Dose: 5 mg Enoxaparin Sodium (Lovenox) 40 mg SC DAILY [facility] PRN Reason: Protocol Last Admin: 10/11/17 08:57 Dose: 40 mg Home Med (Dorzolamide 2%/Timolol 0.5% [Cosopt 2%-0.5% Opht]) 1 drop OU BID [facility] Last Admin: 10/11/17 08:58 Dose: 1 drop Hydromorphone HCl (Dilaudid) 1 mg IVP Q4 PRN PRN Reason: Pain, severe (8-10) Hydromorphone HCl (Dilaudid) 0.5 mg IVP Q6H PRN PRN Reason: Pain, moderate (4-7) Last Admin: 10/09/17 06:06 Dose: 0.5 mg Lactated Ringer's (Lactated Ringer's) 1,000 mls @ 150 mls/hr IV .Q6H40M [facility] Last Admin: 10/10/17 06:30 Dose: Not Given Latanoprost (Xalatan Opht) 1 drop OU HS [facility] Last Admin: 10/10/17 21:53 Dose: 1 drop Metoprolol Tartrate (Lopressor) 50 mg PO Q12 [facility] Last Admin: 10/11/17 08:57 Dose: 50 mg - Labs Labs: 10/11/17 05:30 10/11/17 05:30 PT 13.2 Seconds (9.8-13.1) H 10/07/17 11:33 INR 1.2 (0.9-1.2) 10/07/17 11:33 APTT 38.2 Seconds (25.6-37.1) H 10/07/17 11:33 - Constitutional Appears: Non-toxic, No Acute Distress - Head Exam Head Exam: NORMAL INSPECTION - Eye Exam Eye Exam: Normal appearance - ENT Exam ENT Exam: Mucous Membranes Moist - Respiratory Exam Respiratory Exam: NORMAL BREATHING PATTERN. absent: Accessory Muscle Use, Respiratory Distress - GI/Abdominal Exam GI & Abdominal Exam: Soft. absent: Distended, Tenderness - Extremities Exam Extremities Exam: Normal Inspection - Neurological Exam Neurological Exam: Alert, Awake, Oriented x3 - Psychiatric Exam Psychiatric exam: Normal Affect, Normal Mood - Skin Skin Exam: Dry, Intact, Normal Color, Warm Assessment and Plan - Assessment and Plan (Free Text) Assessment: 57 y/o F w/ resolved gallstone pancreatitis. Pt had an abdnormal echo suspicious for ischemic cardiomyoptahty. - pt scheduled for cardiac cath on Friday - f/u Cardiac recs - lap yareli pending results and recommendations Pt discussed w/ Dr. Laura Valera DO PGY2
--- NOTE | 2017-10-11 12:59 | PN ---
DATE: FOLLOWUP SUBJECTIVE: The patient denies any chest pain. She is experiencing abdominal discomfort with no nausea or vomiting. Surgery was canceled as the surgeon considered the patient to be high risk and not stable enough to require the surgery, so I decided to proceed with cardiac catheterization which was scheduled for Friday at [facility] at 10:00 a.m. if the patient remains stable from the GI point of view. PHYSICAL EXAMINATION: VITAL SIGNS: Blood pressure 140/83, heart rate 68, temperature 98, respirations 20. HEENT: Normocephalic. CHEST: Clear. ABDOMEN: Mild epigastric tenderness. EXTREMITIES: No edema. LABORATORY DATA: Hemoglobin and hematocrit 12.6 and 38.6, white count 8.6, platelet count 405,000. SMA-7: Sodium 141, potassium 3.8, chloride 102, CO2 of 32, glucose 92, BUN 14, creatinine 0.8. Today's alkaline phosphatase is declining to 294. ASSESSMENT: 1. Pancreatitis, acalculous cholecystitis. 2. Hypertension. 3. Cardiomyopathy. 4. Cholestasis. 5. Rule out underlying coronary artery disease. RECOMMENDATIONS: Continue current IV Dilaudid p.r.n. Continue Lopressor 50 mg twice a day, Lovenox at 40 mg subcutaneous once a day, Norvasc at 5 mg once a day. The patient will undergo cardiac catheterization on Friday. Tomorrow, restart aspirin and Plavix therapy. Lucian Fountain MD
[2017-10-11] MEDS: Latanoprost 0.005% Opht SOUTION OU SCH (21:28)
--- NOTE | 2017-10-11 23:58 | CP.PCM.PN ---
Subjective - Date & Time of Evaluation Date of Evaluation: 10/09/17 Time of Evaluation: 16:00 Objective - Vital Signs/Intake and Output Vital Signs (last 24 hours): Temp Pulse Resp BP Pulse Ox 97.9 F 83 18 133/84 98 10/11/17 16:22 10/11/17 21:27 10/11/17 16:22 10/11/17 21:27 10/11/17 16:22 - Medications Medications: Current Medications Acetaminophen (Tylenol 325mg Tab) 650 mg PO Q6 PRN PRN Reason: Pain, Mild (1-3) Amlodipine Besylate (Norvasc) 10 mg PO DAILY [facility] Enoxaparin Sodium (Lovenox) 40 mg SC DAILY [facility] PRN Reason: Protocol Last Admin: 10/11/17 08:57 Dose: 40 mg Home Med (Dorzolamide 2%/Timolol 0.5% [Cosopt 2%-0.5% Opht]) 1 drop OU BID [facility] Last Admin: 10/11/17 16:33 Dose: 1 drop Hydromorphone HCl (Dilaudid) 1 mg IVP Q4 PRN PRN Reason: Pain, severe (8-10) Hydromorphone HCl (Dilaudid) 0.5 mg IVP Q6H PRN PRN Reason: Pain, moderate (4-7) Last Admin: 10/11/17 21:41 Dose: 0.5 mg Lactated Ringer's (Lactated Ringer's) 1,000 mls @ 150 mls/hr IV .Q6H40M [facility] Last Admin: 10/10/17 06:30 Dose: Not Given Latanoprost (Xalatan Opht) 1 drop OU HS [facility] Last Admin: 10/11/17 21:28 Dose: 1 drop Metoprolol Tartrate (Lopressor) 50 mg PO Q12 [facility] Last Admin: 10/11/17 21:27 Dose: 50 mg - Labs Labs: 10/11/17 05:30 10/11/17 05:30 PT 13.2 Seconds (9.8-13.1) H 10/07/17 11:33 INR 1.2 (0.9-1.2) 10/07/17 11:33 APTT 38.2 Seconds (25.6-37.1) H 10/07/17 11:33 Assessment and Plan (1) Gallstone pancreatitis Assessment & Plan: Liapse and Abnormal LFT trending down clear Liquid Diet IVF Pain Medication PRN Zofran PRN Repeat Lipase, BMP and CBC with D GI and Surgery Consulted, and Onboard Status: Acute Priority: High (2) Chronic abdominal pain Assessment and Plan: Most Likely Biliary Colick Status: Acute Priority: Medium (3) Exertional Dyspnea, Cardiomyopathy with EF 35-40% ?Etiology (CAD VS HHD) Assessment and Plan: Severe Obese R/O Hypertensive Heart Disease Vs Stable Anginal Cardiology Clearance reuqested. (4) HTN, Primary Fairly Controlled. Status: Chronic
--- NOTE | 2017-10-11 23:59 | CP.PCM.PN ---
Subjective - Date & Time of Evaluation Date of Evaluation: 10/10/17 Time of Evaluation: 15:10 Objective - Vital Signs/Intake and Output Vital Signs (last 24 hours): Temp Pulse Resp BP Pulse Ox 97.9 F 83 18 133/84 98 10/11/17 16:22 10/11/17 21:27 10/11/17 16:22 10/11/17 21:27 10/11/17 16:22 - Medications Medications: Current Medications Acetaminophen (Tylenol 325mg Tab) 650 mg PO Q6 PRN PRN Reason: Pain, Mild (1-3) Amlodipine Besylate (Norvasc) 10 mg PO DAILY [facility] Enoxaparin Sodium (Lovenox) 40 mg SC DAILY [facility] PRN Reason: Protocol Last Admin: 10/11/17 08:57 Dose: 40 mg Home Med (Dorzolamide 2%/Timolol 0.5% [Cosopt 2%-0.5% Opht]) 1 drop OU BID [facility] Last Admin: 10/11/17 16:33 Dose: 1 drop Hydromorphone HCl (Dilaudid) 1 mg IVP Q4 PRN PRN Reason: Pain, severe (8-10) Hydromorphone HCl (Dilaudid) 0.5 mg IVP Q6H PRN PRN Reason: Pain, moderate (4-7) Last Admin: 10/11/17 21:41 Dose: 0.5 mg Lactated Ringer's (Lactated Ringer's) 1,000 mls @ 150 mls/hr IV .Q6H40M [facility] Last Admin: 10/10/17 06:30 Dose: Not Given Latanoprost (Xalatan Opht) 1 drop OU HS [facility] Last Admin: 10/11/17 21:28 Dose: 1 drop Metoprolol Tartrate (Lopressor) 50 mg PO Q12 [facility] Last Admin: 10/11/17 21:27 Dose: 50 mg - Labs Labs: 10/11/17 05:30 10/11/17 05:30 PT 13.2 Seconds (9.8-13.1) H 10/07/17 11:33 INR 1.2 (0.9-1.2) 10/07/17 11:33 APTT 38.2 Seconds (25.6-37.1) H 10/07/17 11:33 Assessment and Plan (1) Gallstone pancreatitis Assessment & Plan: Liapse and Abnormal LFT trending down clear Liquid Diet IVF Pain Medication PRN Zofran PRN Repeat Lipase, BMP and CBC with D GI and Surgery Consulted, and Onboard Status: Acute Priority: High (2) Chronic abdominal pain Assessment and Plan: Most Likely Biliary Colick Status: Acute Priority: Medium (3) Exertional Dyspnea, Cardiomyopathy with EF 35-40% ?Etiology (CAD VS HHD) Assessment and Plan: Severe Obese R/O Hypertensive Heart Disease Vs Stable Anginal Cardiology Clearance reuqested. (4) HTN, Primary Fairly Controlled. Status: Acute
--- NOTE | 2017-10-12 | CP.PCM.PN ---
Subjective - Date & Time of Evaluation Date of Evaluation: 10/11/17 Time of Evaluation: 15:45 Objective - Vital Signs/Intake and Output Vital Signs (last 24 hours): Temp Pulse Resp BP Pulse Ox 97.9 F 83 18 133/84 98 10/11/17 16:22 10/11/17 21:27 10/11/17 16:22 10/11/17 21:27 10/11/17 16:22 - Medications Medications: Current Medications Acetaminophen (Tylenol 325mg Tab) 650 mg PO Q6 PRN PRN Reason: Pain, Mild (1-3) Amlodipine Besylate (Norvasc) 10 mg PO DAILY [facility] Enoxaparin Sodium (Lovenox) 40 mg SC DAILY [facility] PRN Reason: Protocol Last Admin: 10/11/17 08:57 Dose: 40 mg Home Med (Dorzolamide 2%/Timolol 0.5% [Cosopt 2%-0.5% Opht]) 1 drop OU BID [facility] Last Admin: 10/11/17 16:33 Dose: 1 drop Hydromorphone HCl (Dilaudid) 1 mg IVP Q4 PRN PRN Reason: Pain, severe (8-10) Hydromorphone HCl (Dilaudid) 0.5 mg IVP Q6H PRN PRN Reason: Pain, moderate (4-7) Last Admin: 10/11/17 21:41 Dose: 0.5 mg Lactated Ringer's (Lactated Ringer's) 1,000 mls @ 150 mls/hr IV .Q6H40M [facility] Last Admin: 10/10/17 06:30 Dose: Not Given Latanoprost (Xalatan Opht) 1 drop OU HS [facility] Last Admin: 10/11/17 21:28 Dose: 1 drop Metoprolol Tartrate (Lopressor) 50 mg PO Q12 [facility] Last Admin: 10/11/17 21:27 Dose: 50 mg - Labs Labs: 10/11/17 05:30 10/11/17 05:30 PT 13.2 Seconds (9.8-13.1) H 10/07/17 11:33 INR 1.2 (0.9-1.2) 10/07/17 11:33 APTT 38.2 Seconds (25.6-37.1) H 10/07/17 11:33 Assessment and Plan (1) Gallstone pancreatitis Assessment & Plan: Liapse and Abnormal LFT trending down clear Liquid Diet IVF Pain Medication PRN Zofran PRN Repeat Lipase, BMP and CBC with D GI and Surgery Consulted, and Onboard Status: Acute Priority: High (2) Chronic abdominal pain Assessment and Plan: Most Likely Biliary Colick Status: Acute Priority: Medium (3) Exertional Dyspnea, Cardiomyopathy with EF 35-40% ?Etiology (CAD VS HHD) Assessment and Plan: Severe Obese R/O Hypertensive Heart Disease Vs Stable Anginal Cardiology Clearance reuqested. (4) HTN, Primary Fairly Controlled. Status: Acute
[2017-10-12] MEDS: Patient's Own Med (Dorzolamide 2%/Timolol 0.5% [Cosopt 2%-0.5% Opht] 1 DROP) OU SCH ×2 (11:10→18:52)
[2017-10-12] MEDS: Enoxaparin 40 mg Syringe SC SCH (11:10)
--- NOTE | 2017-10-12 19:58 | PN ---
DATE: SUBJECTIVE: The patient denies any chest pain. She did report abdominal pain and required Dilaudid injection. She denies any retrosternal chest pain. PHYSICAL EXAMINATION: VITAL SIGNS: Blood pressure 139/95, heart rate 109, temperature 98.5, respirations 20. HEENT: Normocephalic. CHEST: Clear. HEART: S1 and S2, regular. ABDOMEN: Mild epigastric tenderness. EXTREMITIES: No edema. ASSESSMENT: 1. Calculous cholecystitis. 2. Pancreatitis. 3. Cardiomyopathy. 4. Hypertension. 5. Cholestasis. RECOMMENDATIONS: Continue IV Dilaudid p.r.n. Continue Lopressor 50 mg twice a day, Lovenox at 40 mg subcutaneously once a day, Norvasc at 10 mg once a day. I will administer aspirin 81 mg and Plavix 75 mg. Start Pepcid orally twice a day. The patient will be kept n.p.o. for cardiac catheterization tomorrow morning at [facility]. Lucian Fountain MD
[2017-10-12] MEDS: Latanoprost 0.005% Opht SOUTION OU SCH (21:29)
[2017-10-13 06:26] LABS: BASO % 0.3 % (0.0-2.0); EOS # 0.3 K/uL (0.0-0.7); EOS % 3.1 % (0.0-4.0); HEMOGLOBIN 12.6 g/dL (12.0-16.0); LYMPH # 4.3 K/uL (1.0-4.3); LYMPH % 45.6 % (20.0-40.0); MEAN CELL VOLUME 89.5 fl (81.0-99.0); MEAN CORPUSCULAR HEMOGLOBIN 29.8 pg (27.0-31.0); MEAN CORPUSCULAR HGB CONC 33.3 g/dL (33.0-37.0); MEAN PLATELET VOLUME 9.5 fl (7.2-11.7); MONO # 0.6 K/uL (0.0-0.8); MONO % 6.4 % (0.0-10.0); NEUT # 4.2 K/uL (1.8-7.0); NEUT % 44.6 % (50.0-75.0); NRBC % 0.2 % (0.0-0.0); RBC 4.25 Mil/uL (3.80-5.20); RED CELL DISTRIBUTION WIDTH 13.6 % (11.5-14.5); WHITE BLOOD COUNT 9.5 K/uL (4.8-10.8)
[2017-10-13 06:30] LABS: ALBUMIN 3.6 g/dL (3.5-5.0); ALT/SGPT 144 U/L (9-52); AST/SGOT 43 U/L (14-36); BLOOD UREA NITROGEN 21 mg/dl (7-17); CALCIUM 9.9 mg/dL (8.4-10.2); GFR AFRICAN-AMERICAN > 60; GFR NON-AFRICAN AMERICAN > 60; MAGNESIUM 1.8 MG/DL (1.6-2.3)
[2017-10-13 06:42] LABS: INR 1.1 (0.9-1.2); PARTIAL THROMBOPLASTIN TIME 34.2 Seconds (25.6-37.1); PROTHROMBIN TIME 11.8 Seconds (9.8-13.1)
[2017-10-13] MEDS: Patient's Own Med (Dorzolamide 2%/Timolol 0.5% [Cosopt 2%-0.5% Opht] 1 DROP) OU SCH ×2 (07:23→09:00)
[2017-10-13] MEDS: Latanoprost 0.005% Opht SOUTION OU SCH (21:13)
--- NOTE | 2017-10-13 22:16 | CP.PCM.PN ---
Subjective - Date & Time of Evaluation Date of Evaluation: 10/12/17 Time of Evaluation: 18:15 Objective - Vital Signs/Intake and Output Vital Signs (last 24 hours): Temp Pulse Resp BP Pulse Ox 98.3 F 75 20 123/80 96 10/13/17 07:47 10/13/17 21:10 10/13/17 07:47 10/13/17 21:10 10/13/17 07:47 - Medications Medications: Current Medications Acetaminophen (Tylenol 325mg Tab) 650 mg PO Q6 PRN PRN Reason: Pain, Mild (1-3) Amlodipine Besylate (Norvasc) 10 mg PO DAILY [facility] Last Admin: 10/13/17 09:00 Dose: Not Given Aspirin (Aspirin Chewable) 81 mg PO DAILY [facility] Last Admin: 10/13/17 09:13 Dose: 81 mg Clopidogrel Bisulfate (Plavix) 75 mg PO DAILY [facility] Last Admin: 10/13/17 09:13 Dose: 75 mg Famotidine (Pepcid) 20 mg PO BID [facility] Last Admin: 10/13/17 09:00 Dose: Not Given Home Med (Dorzolamide 2%/Timolol 0.5% [Cosopt 2%-0.5% Opht]) 1 drop OU BID [facility] Last Admin: 10/13/17 09:00 Dose: Not Given Hydromorphone HCl (Dilaudid) 0.5 mg IVP Q6 PRN PRN Reason: Pain, moderate (4-7) Last Admin: 10/13/17 22:01 Dose: 0.5 mg Lactated Ringer's (Lactated Ringer's) 1,000 mls @ 150 mls/hr IV .Q6H40M [facility] Last Admin: 10/10/17 06:30 Dose: Not Given Latanoprost (Xalatan Opht) 1 drop OU HS [facility] Last Admin: 10/13/17 21:13 Dose: 1 drop Metoprolol Tartrate (Lopressor) 50 mg PO Q12 [facility] Last Admin: 10/13/17 21:10 Dose: 50 mg - Labs Labs: 10/13/17 05:55 10/13/17 05:55 PT 11.8 Seconds (9.8-13.1) 10/13/17 05:55 INR 1.1 (0.9-1.2) 10/13/17 05:55 APTT 34.2 Seconds (25.6-37.1) 10/13/17 05:55 Assessment and Plan (1) Gallstone pancreatitis Status: Acute
--- NOTE | 2017-10-13 22:23 | CP.PCM.PN ---
Subjective - Date & Time of Evaluation Date of Evaluation: 10/13/17 Time of Evaluation: 16:30 Objective - Vital Signs/Intake and Output Vital Signs (last 24 hours): Temp Pulse Resp BP Pulse Ox 98.3 F 75 20 123/80 96 10/13/17 07:47 10/13/17 21:10 10/13/17 07:47 10/13/17 21:10 10/13/17 07:47 - Medications Medications: Current Medications Acetaminophen (Tylenol 325mg Tab) 650 mg PO Q6 PRN PRN Reason: Pain, Mild (1-3) Amlodipine Besylate (Norvasc) 10 mg PO DAILY [facility] Last Admin: 10/13/17 09:00 Dose: Not Given Aspirin (Aspirin Chewable) 81 mg PO DAILY [facility] Last Admin: 10/13/17 09:13 Dose: 81 mg Clopidogrel Bisulfate (Plavix) 75 mg PO DAILY [facility] Last Admin: 10/13/17 09:13 Dose: 75 mg Famotidine (Pepcid) 20 mg PO BID [facility] Last Admin: 10/13/17 09:00 Dose: Not Given Home Med (Dorzolamide 2%/Timolol 0.5% [Cosopt 2%-0.5% Opht]) 1 drop OU BID [facility] Last Admin: 10/13/17 09:00 Dose: Not Given Hydromorphone HCl (Dilaudid) 0.5 mg IVP Q6 PRN PRN Reason: Pain, moderate (4-7) Last Admin: 10/13/17 22:01 Dose: 0.5 mg Lactated Ringer's (Lactated Ringer's) 1,000 mls @ 150 mls/hr IV .Q6H40M [facility] Last Admin: 10/10/17 06:30 Dose: Not Given Latanoprost (Xalatan Opht) 1 drop OU HS [facility] Last Admin: 10/13/17 21:13 Dose: 1 drop Metoprolol Tartrate (Lopressor) 50 mg PO Q12 [facility] Last Admin: 10/13/17 21:10 Dose: 50 mg - Labs Labs: 10/13/17 05:55 10/13/17 05:55 PT 11.8 Seconds (9.8-13.1) 10/13/17 05:55 INR 1.1 (0.9-1.2) 10/13/17 05:55 APTT 34.2 Seconds (25.6-37.1) 10/13/17 05:55 Assessment and Plan (1) Gallstone pancreatitis Status: Acute
[2017-10-14 06:31] LABS: HEMOGLOBIN 12.4 g/dL (12.0-16.0); MEAN CELL VOLUME 89.8 fl (81.0-99.0); MEAN CORPUSCULAR HEMOGLOBIN 29.2 pg (27.0-31.0); MEAN CORPUSCULAR HGB CONC 32.5 g/dL (33.0-37.0); RBC 4.26 Mil/uL (3.80-5.20); RED CELL DISTRIBUTION WIDTH 13.7 % (11.5-14.5); WHITE BLOOD COUNT 9.2 K/uL (4.8-10.8)
[2017-10-14 07:06] LABS: ALBUMIN 3.4 g/dL (3.5-5.0); ALT/SGPT 114 U/L (9-52); AST/SGOT 36 U/L (14-36); BLOOD UREA NITROGEN 16 mg/dl (7-17); CALCIUM 9.6 mg/dL (8.4-10.2); GFR AFRICAN-AMERICAN > 60; GFR NON-AFRICAN AMERICAN > 60
--- NOTE | 2017-10-14 07:30 | CP.PCM.PN ---
Subjective - Date & Time of Evaluation Date of Evaluation: 10/14/17 Time of Evaluation: 07:32 - Subjective Subjective: General Surgery: Dr Sanchez Pt S&E. s/p cardiac cath yesterday that demonstrated patent coronary vasculature. Cleared by cardio for surgery. Pt reports minimal RUQ pain still. Tolerating clears. Denies N/V, F/C. All questions answered regarding tomorrows surgery. Objective - Vital Signs/Intake and Output Vital Signs (last 24 hours): Temp Pulse Resp BP Pulse Ox 98.0 F 68 19 109/73 96 10/14/17 00:00 10/14/17 00:00 10/14/17 00:00 10/14/17 00:00 10/14/17 00:00 - Medications Medications: Current Medications Acetaminophen (Tylenol 325mg Tab) 650 mg PO Q6 PRN PRN Reason: Pain, Mild (1-3) Amlodipine Besylate (Norvasc) 10 mg PO DAILY [facility] Last Admin: 10/13/17 09:00 Dose: Not Given Aspirin (Aspirin Chewable) 81 mg PO DAILY [facility] Last Admin: 10/13/17 09:13 Dose: 81 mg Clopidogrel Bisulfate (Plavix) 75 mg PO DAILY [facility] Last Admin: 10/13/17 09:13 Dose: 75 mg Famotidine (Pepcid) 20 mg PO BID [facility] Last Admin: 10/13/17 09:00 Dose: Not Given Home Med (Dorzolamide 2%/Timolol 0.5% [Cosopt 2%-0.5% Opht]) 1 drop OU BID [facility] Last Admin: 10/13/17 09:00 Dose: Not Given Hydromorphone HCl (Dilaudid) 0.5 mg IVP Q6 PRN PRN Reason: Pain, moderate (4-7) Last Admin: 10/13/17 22:01 Dose: 0.5 mg Lactated Ringer's (Lactated Ringer's) 1,000 mls @ 150 mls/hr IV .Q6H40M [facility] Last Admin: 10/10/17 06:30 Dose: Not Given Latanoprost (Xalatan Opht) 1 drop OU HS [facility] Last Admin: 10/13/17 21:13 Dose: 1 drop Metoprolol Tartrate (Lopressor) 50 mg PO Q12 [facility] Last Admin: 10/13/17 21:10 Dose: 50 mg - Labs Labs: 10/14/17 06:05 10/14/17 06:05 PT 11.8 Seconds (9.8-13.1) 10/13/17 05:55 INR 1.1 (0.9-1.2) 10/13/17 05:55 APTT 34.2 Seconds (25.6-37.1) 10/13/17 05:55 - Constitutional Appears: Non-toxic, No Acute Distress - Head Exam Head Exam: NORMAL INSPECTION - Eye Exam Eye Exam: Normal appearance. absent: Scleral icterus - Respiratory Exam Respiratory Exam: absent: Accessory Muscle Use, Respiratory Distress - Cardiovascular Exam Cardiovascular Exam: REGULAR RHYTHM. absent: Tachycardia - GI/Abdominal Exam GI & Abdominal Exam: Soft. absent: Tenderness - Neurological Exam Neurological Exam: Alert, Awake, Oriented x3 - Psychiatric Exam Psychiatric exam: Normal Affect, Normal Mood - Skin Skin Exam: Normal Color, Warm Assessment and Plan - Assessment and Plan (Free Text) Assessment: 57F w/ gallstone pancreatitis; resolving Plan: NPO @ [place] cont IVF OR tomorrow for lap yareli d/w Dr Laura Pickett, PGY3
[2017-10-14] MEDS: Patient's Own Med (Dorzolamide 2%/Timolol 0.5% [Cosopt 2%-0.5% Opht] 1 DROP) OU SCH ×2 (08:32→16:13)
--- NOTE | 2017-10-14 14:34 | PN ---
DATE: FOLLOWUP SUBJECTIVE: The patient underwent cardiac catheterization, which revealed unremarkable coronary circulation with moderately severe depressed ejection fraction, which was estimated in the range of 35-40%. No reports of groin bleeding. The patient denies any chest pain. She complains of epigastric discomfort. PHYSICAL EXAMINATION: VITAL SIGNS: Blood pressure , heart rate 78, temperature 98.8, respirations 20. HEENT: Normocephalic. CHEST: Clear. HEART: S1 and S2 regular. EXTREMITIES: Trace leg edema. No groin hematoma. LABORATORY DATA: Today's SMA-7: Sodium 142, potassium 4.1, chloride 101, CO2 of 33, glucose 90, BUN 16, creatinine 0.9. Alkaline phosphatase 215. Today's hemoglobin and hematocrit, white count and platelet count are within normal limit. ASSESSMENT: 1. Hypertensive cardiomyopathy. 2. Pancreatitis. 3. Calculous cholecystitis. 4. Hypertension. RECOMMENDATIONS: I discontinued both aspirin and Plavix. Continue Lopressor at 50 mg twice a day. Discontinue Norvasc. Start enalapril at 2.5 mg daily. The patient can undergo cholecystectomy with close perioperative blood pressure and risk monitoring and postoperative ICU/telemetry monitoring. I did discuss the findings of cardiac cath with both the primary physician, the surgeon as well as the certified ophthalmic surgical assistant. Lucian Fountain MD
--- NOTE | 2017-10-14 18:43 | CP.PCM.PN ---
Subjective - Date & Time of Evaluation Date of Evaluation: 10/14/17 Time of Evaluation: 18:55 Objective - Vital Signs/Intake and Output Vital Signs (last 24 hours): Temp Pulse Resp BP Pulse Ox 98.1 F 76 18 123/82 97 10/14/17 16:21 10/14/17 16:21 10/14/17 16:21 10/14/17 16:21 10/14/17 16:21 - Medications Medications: Current Medications Acetaminophen (Tylenol 325mg Tab) 650 mg PO Q6 PRN PRN Reason: Pain, Mild (1-3) Enalapril Maleate (Vasotec) 2.5 mg PO DAILY [facility] Famotidine (Pepcid) 20 mg PO BID [facility] Last Admin: 10/14/17 16:12 Dose: 20 mg Home Med (Dorzolamide 2%/Timolol 0.5% [Cosopt 2%-0.5% Opht]) 1 drop OU BID [facility] Last Admin: 10/14/17 16:13 Dose: 1 drop Hydromorphone HCl (Dilaudid) 0.5 mg IVP Q6 PRN PRN Reason: Pain, moderate (4-7) Last Admin: 10/13/17 22:01 Dose: 0.5 mg Lactated Ringer's (Lactated Ringer's) 1,000 mls @ 150 mls/hr IV .Q6H40M [facility] Last Admin: 10/10/17 06:30 Dose: Not Given Latanoprost (Xalatan Opht) 1 drop OU HS [facility] Last Admin: 10/13/17 21:13 Dose: 1 drop Metoprolol Tartrate (Lopressor) 50 mg PO Q12 [facility] Last Admin: 10/14/17 08:33 Dose: 50 mg - Labs Labs: 10/14/17 06:05 10/14/17 06:05 PT 11.8 Seconds (9.8-13.1) 10/13/17 05:55 INR 1.1 (0.9-1.2) 10/13/17 05:55 APTT 34.2 Seconds (25.6-37.1) 10/13/17 05:55 Assessment and Plan (1) Gallstone pancreatitis Status: Acute
[2017-10-14] MEDS: Latanoprost 0.005% Opht SOUTION OU SCH (21:05)
[2017-10-15] MEDS: Patient's Own Med (Dorzolamide 2%/Timolol 0.5% [Cosopt 2%-0.5% Opht] 1 DROP) OU SCH (08:43)
[2017-10-15] MEDS ORDERED: Dextrose 5%/0.45% NS 1,000 ML IV SCH (09:00)
[2017-10-15] MEDS ORDERED: Bupivacaine 0.5% Inj(30mL) ONE (12:47)
[2017-10-15] MEDS ORDERED: Lidocaine 1% Inj (20ml) ONE (12:47)
[2017-10-15] MEDS ORDERED: Propofol 10 mg/ml Inj (20 ML) ONE ×2 (12:49→14:59)
[2017-10-15] MEDS ORDERED: Rocuronium 10 mg/ml (5 ml) ONE ×2 (12:50→14:01)
[2017-10-15] MEDS ORDERED: Midazolam 2 MG/2 ML VIAL ONE (12:50)
[2017-10-15] MEDS ORDERED: Dexamethasone 4 mg/1 ml ONE (12:52)
[2017-10-15] MEDS ORDERED: Lactated Ringer's 1,000 ML IV ONE ×3 (13:00→17:55)
[2017-10-15] MEDS ORDERED: Bupivacaine 0.25% Inj(30mL) IJ ONE ×2 (13:45)
[2017-10-15] MEDS ORDERED: Lidocaine 1% Inj (20ml) IJ ONE (13:45)
[2017-10-15] MEDS ORDERED: Cellulose Hemostat 2X3 Sheet TP ONE (14:24)
[2017-10-15] MEDS ORDERED: ePHEDrine 50 mg/ml Inj ONE (14:48)
--- NOTE | 2017-10-15 15:50 | PCM.SURG1 ---
Surgeon's Initial Post Op Note - Surgeon's Notes Surgeon: Gray Sanchez MD Panama Hat Smearer: Eduardo Pickett PGY-3; Patsy Beatty PGY-1 Pre-Operative Diagnosis: Gallstone pancreatitis, cholelithiasis Operative Findings: see op report Post-Operative Diagnosis: cholelithiasis Operation Performed: laparoscopic cholecystectomy Specimen/Specimens Removed: gallbladder Estimated Blood Loss: EBL {In ML}: 10 Blood Products Given: N/A Drains Used: No Drains Post-Op Condition: Good Date of Surgery/Procedure: 10/15/17 Time of Surgery/Procedure: 15:54
[2017-10-15] MEDS: HYDROmorphone 0.5 mg/0.5 ml ISec IVP PRN ×2 (16:15→17:30)
[2017-10-15 18:22] LABS: MEAN CELL VOLUME 90.2 fl (81.0-99.0); MEAN CORPUSCULAR HEMOGLOBIN 28.2 pg (27.0-31.0); MEAN CORPUSCULAR HGB CONC 31.3 g/dL (33.0-37.0); RBC 4.62 Mil/uL (3.80-5.20); RED CELL DISTRIBUTION WIDTH 14.1 % (11.5-14.5); WHITE BLOOD COUNT 14.5 K/uL (4.8-10.8)
[2017-10-15 18:50] LABS: BLOOD UREA NITROGEN 17 mg/dl (7-17); CALCIUM 9.5 mg/dL (8.4-10.2); GFR AFRICAN-AMERICAN > 60; GFR NON-AFRICAN AMERICAN > 60
[2017-10-15] MEDS: Lactated Ringer's 1,000 ML IV SCH (19:30)
--- NOTE | 2017-10-15 19:56 | PN ---
DATE: SUBJECTIVE: I saw the patient in the recovery room one hour after her laparoscopic cholecystectomy. There is no reported hypertension or ventricular tachycardia. The patient denies any chest pain. PHYSICAL EXAMINATION: VITAL SIGNS: Blood pressure 120/76, heart rate 86, temperature 97.3, respirations 18. HEENT: Normocephalic. CHEST: Clear. HEART: S1 and S2, regular. EXTREMITIES: Trace leg edema. ASSESSMENT: 1. Status post laparoscopic cholecystectomy. 2. Systolic heart failure. 3. Cholestasis. 4. Hypertension. RECOMMENDATIONS: The case was discussed with the surgical team. The patient will be transferred to telemetry. Resume Lopressor 50 mg twice a day and Vasotec 2.5 mg once a day, once oral intake is allowed. I will obtain basic labs including CBC, BMP, as well as postoperative EKG. Lucian Fountain MD
[2017-10-15] MEDS: Latanoprost 0.005% Opht SOUTION OU SCH (22:12)
--- NOTE | 2017-10-15 23:07 | CP.PCM.PN ---
Subjective - Date & Time of Evaluation Date of Evaluation: 10/15/17 Time of Evaluation: 22:25 Objective - Vital Signs/Intake and Output Vital Signs (last 24 hours): Temp Pulse Resp BP Pulse Ox 98.4 F 88 20 120/81 95 10/15/17 19:15 10/15/17 22:12 10/15/17 19:15 10/15/17 22:12 10/15/17 19:15 Intake and Output: 10/15/17 10/16/17 18:59 06:59 Intake Total 1050 Balance 1050 - Medications Medications: Current Medications Acetaminophen (Tylenol 325mg Tab) 650 mg PO Q6 PRN PRN Reason: Pain, Mild (1-3) Enalapril Maleate (Vasotec) 2.5 mg PO DAILY [facility] Last Admin: 10/15/17 08:41 Dose: 2.5 mg Famotidine (Pepcid) 20 mg PO BID [facility] Last Admin: 10/15/17 08:42 Dose: Not Given Home Med (Dorzolamide 2%/Timolol 0.5% [Cosopt 2%-0.5% Opht]) 1 drop OU BID [facility] Last Admin: 10/15/17 08:43 Dose: 1 drop Hydromorphone HCl (Dilaudid) 0.5 mg IVP Q5M PRN PRN Reason: Pain, severe (8-10) Stop: 10/15/17 23:59 Last Admin: 10/15/17 17:30 Dose: 0.5 mg Hydromorphone HCl (Dilaudid) 0.5 mg IVP Q3H PRN PRN Reason: Pain, moderate (4-7) Last Admin: 10/15/17 20:39 Dose: 0.5 mg Dextrose/Sodium Chloride (Dextrose 5%/0.45% Ns 1000 Ml) 1,000 mls @ 80 mls/hr IV .[id number] [facility] Stop: 10/16/17 08:50 Last Admin: 10/15/17 09:42 Dose: 80 mls/hr Lactated Ringer's (Lactated Ringer's) 1,000 mls @ 75 mls/hr IV .[id number] [facility] Latanoprost (Xalatan Opht) 1 drop OU HS [facility] Last Admin: 10/15/17 22:12 Dose: 1 drop Metoprolol Tartrate (Lopressor) 50 mg PO Q12 [facility] Last Admin: 10/15/17 22:12 Dose: 50 mg Morphine Sulfate (Morphine) 2 mg IVP Q10M PRN PRN Reason: Pain, moderate (4-7) Stop: 10/15/17 23:59 Ondansetron HCl (Zofran Inj) 4 mg IVP ONCE PRN PRN Reason: Nausea/Vomiting Stop: 10/15/17 23:59 - Labs Labs: 10/15/17 17:00 10/15/17 17:00 PT 11.8 Seconds (9.8-13.1) 10/13/17 05:55 INR 1.1 (0.9-1.2) 10/13/17 05:55 APTT 34.2 Seconds (25.6-37.1) 10/13/17 05:55 Assessment and Plan (1) Gallstone pancreatitis Status: Acute
--- NOTE | 2017-10-16 07:30 | CP.PCM.PN ---
Subjective - Date & Time of Evaluation Date of Evaluation: 10/16/17 Time of Evaluation: 07:19 - Subjective Subjective: General Surgery: Dr Sanchez Pt S&E. POD#1 s/p lap yareli. Pt doing well. Complains of minimal abdominal pain. Denies N/V, F/C, SOB or chest pain. Has not yet been OOB. Using incentive spirometer. Objective - Vital Signs/Intake and Output Vital Signs (last 24 hours): Temp Pulse Resp BP Pulse Ox 98.2 F 84 16 97/62 L 96 10/16/17 05:17 10/16/17 05:17 10/16/17 05:17 10/16/17 05:17 10/16/17 05:17 Intake and Output: 10/16/17 10/16/17 06:59 18:59 Intake Total 1340 Output Total 800 Balance 540 - Medications Medications: Current Medications Acetaminophen (Tylenol 325mg Tab) 650 mg PO Q6 PRN PRN Reason: Pain, Mild (1-3) Enalapril Maleate (Vasotec) 2.5 mg PO DAILY [facility] Last Admin: 10/15/17 08:41 Dose: 2.5 mg Famotidine (Pepcid) 20 mg PO BID [facility] Last Admin: 10/15/17 08:42 Dose: Not Given Home Med (Dorzolamide 2%/Timolol 0.5% [Cosopt 2%-0.5% Opht]) 1 drop OU BID [facility] Last Admin: 10/15/17 08:43 Dose: 1 drop Hydromorphone HCl (Dilaudid) 0.5 mg IVP Q3H PRN PRN Reason: Pain, moderate (4-7) Last Admin: 10/16/17 03:30 Dose: 0.5 mg Dextrose/Sodium Chloride (Dextrose 5%/0.45% Ns 1000 Ml) 1,000 mls @ 80 mls/hr IV .[id number] [facility] Stop: 10/16/17 08:50 Last Admin: 10/15/17 09:42 Dose: 80 mls/hr Lactated Ringer's (Lactated Ringer's) 1,000 mls @ 75 mls/hr IV .[id number] [facility] Last Admin: 10/15/17 19:30 Dose: 75 mls/hr Latanoprost (Xalatan Opht) 1 drop OU HS [facility] Last Admin: 10/15/17 22:12 Dose: 1 drop Metoprolol Tartrate (Lopressor) 50 mg PO Q12 [facility] Last Admin: 10/15/17 22:12 Dose: 50 mg - Labs Labs: 10/15/17 17:00 10/15/17 17:00 PT 11.8 Seconds (9.8-13.1) 10/13/17 05:55 INR 1.1 (0.9-1.2) 10/13/17 05:55 APTT 34.2 Seconds (25.6-37.1) 10/13/17 05:55 - Constitutional Appears: Non-toxic, No Acute Distress - Head Exam Head Exam: NORMOCEPHALIC - ENT Exam ENT Exam: Mucous Membranes Moist - Respiratory Exam Respiratory Exam: absent: Accessory Muscle Use, Respiratory Distress - Cardiovascular Exam Cardiovascular Exam: REGULAR RHYTHM. absent: Tachycardia - GI/Abdominal Exam GI & Abdominal Exam: Soft, Tenderness (diffuse but post-op and appropriate). absent: Distended, Firm, Guarding, Rigid - Extremities Exam Extremities Exam: absent: Pedal Edema - Neurological Exam Neurological Exam: Alert, Awake, Oriented x3 - Psychiatric Exam Psychiatric exam: Normal Affect, Normal Mood - Skin Skin Exam: Normal Color, Warm Assessment and Plan - Assessment and Plan (Free Text) Assessment: 57F POD#1 s/p laparoscopic cholecystectomy Plan: ok to transfer to med/surg cont reg diet f/u labs incentive spirometer will d/w Dr Laura Pickett, PGY3
--- NOTE | 2017-10-16 08:32 | CARD ---
APPROVED REPORT EKG Measurement Heart [id number] <Conclusion> Normal sinus rhythm Possible Left atrial enlargement Possible septal infarct, age undetermined T wave abnormality, consider anterior ischemia Abnormal ECG baseline artefact present
[2017-10-16 09:31] LABS: MEAN CELL VOLUME 89.6 fl (81.0-99.0); MEAN CORPUSCULAR HEMOGLOBIN 28.5 pg (27.0-31.0); MEAN CORPUSCULAR HGB CONC 31.8 g/dL (33.0-37.0); RBC 4.2 Mil/uL (3.80-5.20); RED CELL DISTRIBUTION WIDTH 13.8 % (11.5-14.5)
[2017-10-16] MEDS: Patient's Own Med (Dorzolamide 2%/Timolol 0.5% [Cosopt 2%-0.5% Opht] 1 DROP) OU SCH ×2 (09:46→16:11)
[2017-10-16 10:36] LABS: ALBUMIN 3.6 g/dL (3.5-5.0); ALT/SGPT 158 U/L (9-52); AST/SGOT 88 U/L (14-36); BLOOD UREA NITROGEN 16 mg/dl (7-17); GFR AFRICAN-AMERICAN > 60; GFR NON-AFRICAN AMERICAN > 60
[2017-10-16] MEDS: HYDROmorphone 0.5 mg/0.5 ml ISec IVP PRN ×3 (13:43→22:18)
[2017-10-16] MEDS: Lactated Ringer's 1,000 ML IV SCH ×2 (16:10→22:21)
[2017-10-16] MEDS: Enoxaparin 40 mg Syringe SC SCH (16:10)
--- NOTE | 2017-10-16 16:13 | PN ---
DATE: SUBJECTIVE: The patient denies any chest pain or shortness of breath. She appears slightly weak. PHYSICAL EXAMINATION VITAL SIGNS: Blood pressure 120/77, heart rate 75, temperature 99, respirations 20. HEENT: Normocephalic. CHEST: Clear. HEART: S1 and S2 regular. EXTREMITIES: No groin hematoma. Trace leg edema. LABORATORY DATA: Today's hemoglobin and hematocrit 12 and 37.6, white count and platelet count are 12 and 354. Today's SMA-7, sodium 141, potassium 3.7, chloride 102, CO2 of 32, glucose 98, BUN 16, creatinine 0.9. Today's alkaline phosphatase is 223. EKG done yesterday revealed sinus rhythm with nonspecific anterolateral T-wave changes although the computer read interpretation consistent of anterior ischemia. ASSESSMENT: 1. Nonischemic cardiomyopathy. 2. Status post laparoscopic cholecystectomy. 3. Improving cholestasis. 4. Pancreatitis on a background of calculous cholecystitis on admission. RECOMMENDATIONS: Continue Lopressor 50 mg twice a day, Percocet at 1 tablet q. 4 hours p.r.n., enalapril at 2.5 mg daily. The patient will be transferred to . Lucian Fountain MD
[2017-10-16] MEDS: Dorzolamide 2% Ophth Soln OU SCH (18:27)
[2017-10-16] MEDS: Latanoprost 0.005% Opht SOUTION OU SCH (21:25)
[2017-10-17] MEDS: Lactated Ringer's 1,000 ML IV SCH ×3 (04:46→18:28)
[2017-10-17] MEDS: HYDROmorphone 0.5 mg/0.5 ml ISec IVP PRN ×4 (06:20→22:53)
--- NOTE | 2017-10-17 07:29 | CP.PCM.PN ---
Subjective - Date & Time of Evaluation Date of Evaluation: 10/17/17 Time of Evaluation: 07:26 - Subjective Subjective: General Surgery: Dr Sanchez Pt S&E. POD#2 s/p laparoscopic cholecystectomy. Pt states she is in so much pain she "cannot move", but that the pain medicine certainly helps. She has been witnessed OOB to chair and to use the commode. Pt is tolerating regular diet. Pt requesting to stay additional days. Told pt clinically she is doing very well, and her pain is standard post-operative pain. Counseled her on proper way to move and deal with post-operative pain. Denies any N/V, F/C, chest pain Objective - Vital Signs/Intake and Output Vital Signs (last 24 hours): Temp Pulse Resp BP Pulse Ox 99.7 F H 75 20 91/61 L 96 10/17/17 00:11 10/17/17 00:11 10/17/17 00:11 10/17/17 00:11 10/17/17 00:11 Intake and Output: 10/17/17 10/17/17 06:59 18:59 Intake Total 450 Balance 450 - Medications Medications: Current Medications Acetaminophen (Tylenol 325mg Tab) 650 mg PO Q6 PRN PRN Reason: Pain, Mild (1-3) Dorzolamide HCl (Trusopt) 1 drop OU BID [facility] Last Admin: 10/16/17 18:27 Dose: Not Given Enalapril Maleate (Vasotec) 2.5 mg PO DAILY [facility] Last Admin: 10/16/17 09:24 Dose: 2.5 mg Enoxaparin Sodium (Lovenox) 40 mg SC DAILY [facility] PRN Reason: Protocol Last Admin: 10/16/17 16:10 Dose: 40 mg Famotidine (Pepcid) 20 mg PO BID [facility] Last Admin: 10/16/17 16:09 Dose: 20 mg Hydromorphone HCl (Dilaudid) 0.5 mg IVP Q4 PRN PRN Reason: Pain, severe (8-10) Stop: 10/18/17 13:35 Last Admin: 10/17/17 06:20 Dose: 0.5 mg Lactated Ringer's (Lactated Ringer's) 1,000 mls @ 75 mls/hr IV .[id number] [facility] Last Admin: 10/17/17 04:46 Dose: Not Given Latanoprost (Xalatan Opht) 1 drop OU HS [facility] Last Admin: 10/16/17 21:25 Dose: 1 drop Metoprolol Tartrate (Lopressor) 50 mg PO Q12 [facility] Last Admin: 10/16/17 21:21 Dose: 50 mg Oxycodone/Acetaminophen (Percocet 5/325 Mg Tab) 1 tab PO Q4 PRN PRN Reason: Pain, moderate (4-7) Stop: 10/19/17 11:54 Timolol Maleate (Timoptic 0.5% Ophth Soln) 1 drop OU BID [facility] Last Admin: 10/16/17 18:27 Dose: Not Given - Labs Labs: 10/16/17 09:15 10/16/17 09:15 PT 11.8 Seconds (9.8-13.1) 10/13/17 05:55 INR 1.1 (0.9-1.2) 10/13/17 05:55 APTT 34.2 Seconds (25.6-37.1) 10/13/17 05:55 - Constitutional Appears: Non-toxic, No Acute Distress - ENT Exam ENT Exam: Mucous Membranes Moist - Respiratory Exam Respiratory Exam: absent: Accessory Muscle Use, Respiratory Distress - Cardiovascular Exam Cardiovascular Exam: REGULAR RHYTHM - GI/Abdominal Exam GI & Abdominal Exam: Soft, Tenderness (post-op and appropriate - mainly at sites of incision). absent: Distended, Firm, Guarding Additional comments: dressings c/d/i - Extremities Exam Extremities Exam: absent: Pedal Edema - Neurological Exam Neurological Exam: Alert, Awake, Oriented x3 - Psychiatric Exam Psychiatric exam: Normal Affect, Normal Mood - Skin Skin Exam: Normal Color, Warm Assessment and Plan - Assessment and Plan (Free Text) Assessment: 57F POD#2 s/p laparoscopic cholecystectomy Plan: cont reg diet cont IS and attempt ambulation will order PT to assist pt OOB surgically, pt looks to be doing well. Labs improving. VSS. Pt is clear for discharge home vs rehab when capable of managing ADL's at the discretion of primary team f/u in clinic with Dr Laura Pickett, PGY3
[2017-10-17] MEDS: Enoxaparin 40 mg Syringe SC SCH (08:19)
[2017-10-17] MEDS: Dorzolamide 2% Ophth Soln OU SCH ×2 (08:21→16:58)
--- NOTE | 2017-10-17 12:54 | PN ---
DATE: FOLLOWUP SUBJECTIVE: The patient denies any chest pain or shortness of breath, but still feels weak. PHYSICAL EXAMINATION: VITAL SIGNS: Blood pressure 112/77; heart rate 81; temperature earlier was 100.1, currently 98.2, respirations 20. HEENT: Normocephalic. CHEST: Clear. HEART: S1 and S2 regular. ABDOMEN: Mild epigastric tenderness. EXTREMITIES: No edema. LABORATORY DATA: Hemoglobin and hematocrit 12 and 37.6, white count 12.0, platelet count 354,000. SMA-7: Sodium 141, potassium 3.7, chloride 102, CO2 of 32, glucose 98, BUN 16, creatinine 0.9. Today's alkaline phosphatase is 223. ASSESSMENT: 1. Nonischemic cardiomyopathy. 2. Status post laparoscopic cholecystectomy. 3. Improving cholestasis. 4. Hypertension. RECOMMENDATIONS: Continue subcutaneous Lovenox 40 mg once a day, Lopressor 50 mg twice a day, enalapril 2.5 mg once a day. Case was discussed with the patient and the INDUSTRIAL [employer]MI[employer], possibility of transferring the patient for TCU and the patient agrees. The patient herself has no help at home. She lives by herself and she is still feeling weak, unable to take care of her own self. Lucian Fountain MD cc:
--- NOTE | 2017-10-17 16:01 | CP.PCM.PN ---
Subjective - Date & Time of Evaluation Date of Evaluation: 10/16/17 Time of Evaluation: 11:45 Objective - Vital Signs/Intake and Output Vital Signs (last 24 hours): Temp Pulse Resp BP Pulse Ox 99.1 F 77 19 118/83 93 L 10/17/17 15:52 10/17/17 15:52 10/17/17 15:52 10/17/17 15:52 10/17/17 15:52 Intake and Output: 10/17/17 10/17/17 06:59 18:59 Intake Total 450 Balance 450 - Medications Medications: Current Medications Acetaminophen (Tylenol 325mg Tab) 650 mg PO Q6 PRN PRN Reason: Pain, Mild (1-3) Dorzolamide HCl (Trusopt) 1 drop OU BID [facility] Last Admin: 10/17/17 08:21 Dose: 1 drop Enalapril Maleate (Vasotec) 2.5 mg PO DAILY [facility] Last Admin: 10/17/17 08:20 Dose: 2.5 mg Enoxaparin Sodium (Lovenox) 40 mg SC DAILY [facility] PRN Reason: Protocol Last Admin: 10/17/17 08:19 Dose: 40 mg Famotidine (Pepcid) 20 mg PO BID [facility] Last Admin: 10/17/17 08:20 Dose: 20 mg Hydromorphone HCl (Dilaudid) 0.5 mg IVP Q4 PRN PRN Reason: Pain, severe (8-10) Stop: 10/18/17 13:35 Last Admin: 10/17/17 14:14 Dose: 0.5 mg Lactated Ringer's (Lactated Ringer's) 1,000 mls @ 75 mls/hr IV .[id number] [facility] Last Admin: 10/17/17 12:05 Dose: 75 mls/hr Lactulose (Enulose) 20 gm PO BID PRN PRN Reason: Constipation Latanoprost (Xalatan Opht) 1 drop OU HS [facility] Last Admin: 10/16/17 21:25 Dose: 1 drop Metoprolol Tartrate (Lopressor) 50 mg PO Q12 [facility] Last Admin: 10/17/17 08:19 Dose: 50 mg Oxycodone/Acetaminophen (Percocet 5/325 Mg Tab) 1 tab PO Q4 PRN PRN Reason: Pain, moderate (4-7) Stop: 10/19/17 11:54 Timolol Maleate (Timoptic 0.5% Ophth Soln) 1 drop OU BID [facility] Last Admin: 10/17/17 08:21 Dose: 1 drop - Labs Labs: 10/16/17 09:15 10/16/17 09:15 PT 11.8 Seconds (9.8-13.1) 10/13/17 05:55 INR 1.1 (0.9-1.2) 10/13/17 05:55 APTT 34.2 Seconds (25.6-37.1) 10/13/17 05:55 Assessment and Plan (1) Gallstone pancreatitis Status: Acute
[2017-10-17] MEDS: Latanoprost 0.005% Opht SOUTION OU SCH (21:35)
--- NOTE | 2017-10-18 01:04 | CP.PCM.PN ---
Subjective - Date & Time of Evaluation Date of Evaluation: 10/17/17 Time of Evaluation: 17:25 Objective - Vital Signs/Intake and Output Vital Signs (last 24 hours): Temp Pulse Resp BP Pulse Ox 98.1 F 77 19 116/76 95 10/18/17 00:00 10/18/17 00:00 10/18/17 00:00 10/18/17 00:00 10/18/17 00:00 - Medications Medications: Current Medications Acetaminophen (Tylenol 325mg Tab) 650 mg PO Q6 PRN PRN Reason: Pain, Mild (1-3) Dorzolamide HCl (Trusopt) 1 drop OU BID [facility] Last Admin: 10/17/17 16:58 Dose: 1 drop Enalapril Maleate (Vasotec) 2.5 mg PO DAILY [facility] Last Admin: 10/17/17 08:20 Dose: 2.5 mg Enoxaparin Sodium (Lovenox) 40 mg SC DAILY [facility] PRN Reason: Protocol Last Admin: 10/17/17 08:19 Dose: 40 mg Famotidine (Pepcid) 20 mg PO BID [facility] Last Admin: 10/17/17 16:57 Dose: 20 mg Hydromorphone HCl (Dilaudid) 0.5 mg IVP Q4 PRN PRN Reason: Pain, severe (8-10) Stop: 10/18/17 13:35 Last Admin: 10/17/17 22:53 Dose: 0.5 mg Lactated Ringer's (Lactated Ringer's) 1,000 mls @ 75 mls/hr IV .[id number] [facility] Last Admin: 10/17/17 18:28 Dose: Not Given Lactulose (Enulose) 20 gm PO BID PRN PRN Reason: Constipation Latanoprost (Xalatan Opht) 1 drop OU HS [facility] Last Admin: 10/17/17 21:35 Dose: 1 drop Metoprolol Tartrate (Lopressor) 50 mg PO Q12 [facility] Last Admin: 10/17/17 21:33 Dose: 50 mg Oxycodone/Acetaminophen (Percocet 5/325 Mg Tab) 1 tab PO Q4 PRN PRN Reason: Pain, moderate (4-7) Stop: 10/19/17 11:54 Timolol Maleate (Timoptic 0.5% Ophth Soln) 1 drop OU BID [facility] Last Admin: 10/17/17 16:57 Dose: 1 drop - Labs Labs: 10/16/17 09:15 10/16/17 09:15 PT 11.8 Seconds (9.8-13.1) 10/13/17 05:55 INR 1.1 (0.9-1.2) 10/13/17 05:55 APTT 34.2 Seconds (25.6-37.1) 10/13/17 05:55 Assessment and Plan (1) Gallstone pancreatitis Status: Acute
[2017-10-18] MEDS: Lactated Ringer's 1,000 ML IV SCH (02:14)
[2017-10-18] MEDS: HYDROmorphone 0.5 mg/0.5 ml ISec IVP PRN (04:20)
[2017-10-18] MEDS: Enoxaparin 40 mg Syringe SC SCH (09:53)
[2017-10-18] MEDS: Dorzolamide 2% Ophth Soln OU SCH ×2 (09:54→16:52)
[2017-10-18] MEDS: Oxycodone/Acetaminophen 5/325 mg Tab PO PRN ×2 (10:08→14:44)
--- NOTE | 2017-10-18 12:33 | CP.PCM.PN ---
Subjective - Date & Time of Evaluation Date of Evaluation: 10/18/17 Time of Evaluation: 12:32 - Subjective Subjective: Gen Sx: Dr Sanchez PT S&E. Sleeping comfortably. Tolerating diet. Requiring assistance to get OOB and ambulate. May need [facility] vs rehab but clear for d/c surgically. Denies N /V, F/C Objective - Vital Signs/Intake and Output Vital Signs (last 24 hours): Temp Pulse Resp BP Pulse Ox 97.8 F 80 20 149/94 H 94 L 10/18/17 08:17 10/18/17 09:53 10/18/17 08:17 10/18/17 09:53 10/18/17 08:17 Intake and Output: 10/18/17 10/18/17 06:59 18:59 Intake Total 1200 Balance 1200 - Medications Medications: Current Medications Acetaminophen (Tylenol 325mg Tab) 650 mg PO Q6 PRN PRN Reason: Pain, Mild (1-3) Dorzolamide HCl (Trusopt) 1 drop OU BID [facility] Last Admin: 10/18/17 09:54 Dose: 1 drop Enalapril Maleate (Vasotec) 2.5 mg PO DAILY [facility] Last Admin: 10/18/17 09:55 Dose: 2.5 mg Enoxaparin Sodium (Lovenox) 40 mg SC DAILY [facility] PRN Reason: Protocol Last Admin: 10/18/17 09:53 Dose: 40 mg Famotidine (Pepcid) 20 mg PO BID [facility] Last Admin: 10/18/17 09:54 Dose: 20 mg Hydromorphone HCl (Dilaudid) 0.5 mg IVP Q4 PRN PRN Reason: Pain, severe (8-10) Stop: 10/18/17 13:35 Last Admin: 10/18/17 04:20 Dose: 0.5 mg Lactated Ringer's (Lactated Ringer's) 1,000 mls @ 75 mls/hr IV .[id number] [facility] Last Admin: 10/18/17 02:14 Dose: 75 mls/hr Lactulose (Enulose) 20 gm PO BID PRN PRN Reason: Constipation Last Admin: 10/18/17 09:56 Dose: 20 gm Latanoprost (Xalatan Opht) 1 drop OU HS [facility] Last Admin: 10/17/17 21:35 Dose: 1 drop Metoprolol Tartrate (Lopressor) 50 mg PO Q12 [facility] Last Admin: 10/18/17 09:53 Dose: 50 mg Oxycodone/Acetaminophen (Percocet 5/325 Mg Tab) 1 tab PO Q4 PRN PRN Reason: Pain, moderate (4-7) Stop: 10/19/17 11:54 Last Admin: 10/18/17 10:08 Dose: 1 tab Timolol Maleate (Timoptic 0.5% Oph Soln) 1 drop OU BID [facility] Last Admin: 10/18/17 09:54 Dose: 1 drop - Labs Labs: 10/16/17 09:15 10/16/17 09:15 PT 11.8 Seconds (9.8-13.1) 10/13/17 05:55 INR 1.1 (0.9-1.2) 10/13/17 05:55 APTT 34.2 Seconds (25.6-37.1) 10/13/17 05:55 - Constitutional Appears: Non-toxic, No Acute Distress - Head Exam Head Exam: NORMOCEPHALIC - ENT Exam ENT Exam: Mucous Membranes Moist - Respiratory Exam Respiratory Exam: absent: Accessory Muscle Use, Respiratory Distress - GI/Abdominal Exam GI & Abdominal Exam: Soft, Tenderness (post-op) Additional comments: dressing c/d/i
--- NOTE | 2017-10-18 14:21 | PN ---
DATE: FOLLOWUP SUBJECTIVE: The patient did vomit today after breakfast. She is experiencing epigastric discomfort. PHYSICAL EXAMINATION: VITAL SIGNS: Blood pressure 149/94, heart rate 80, temperature 97.8. HEENT: Normocephalic. CHEST: Clear. HEART: S1 and S2 regular. ABDOMEN: Mild epigastric tenderness. EXTREMITIES: No edema. ASSESSMENT: 1. Cardiomyopathy. 2. Status post laparoscopic cholecystectomy. 3. Pancreatitis on presentation. 4. Uncontrolled hypertension. 5. Obesity. RECOMMENDATIONS: Continue Lopressor at 50 mg twice a day and enalapril was increased to 5 mg daily. I did request stat BMP, lipase level and liver profile. Lucian Fountain MD
[2017-10-18 14:29] LABS: BASO # 0.1 K/uL (0.0-0.2); BASO % 0.8 % (0.0-2.0); EOS # 0.4 K/uL (0.0-0.7); EOS % 3.4 % (0.0-4.0); HEMOGLOBIN 11.9 g/dL (12.0-16.0); LYMPH # 3.1 K/uL (1.0-4.3); LYMPH % 28.3 % (20.0-40.0); MEAN CORPUSCULAR HEMOGLOBIN 29.3 pg (27.0-31.0); MEAN CORPUSCULAR HGB CONC 32.2 g/dL (33.0-37.0); MEAN PLATELET VOLUME 9.3 fl (7.2-11.7); MONO # 0.6 K/uL (0.0-0.8); NEUT # 6.7 K/uL (1.8-7.0); NEUT % 61.5 % (50.0-75.0); NRBC % 0.1 % (0.0-0.0); RBC 4.07 Mil/uL (3.80-5.20); RED CELL DISTRIBUTION WIDTH 13.2 % (11.5-14.5); WHITE BLOOD COUNT 10.9 K/uL (4.8-10.8)
[2017-10-18 14:32] LABS: ALBUMIN 3.6 g/dL (3.5-5.0); ALT/SGPT 98 U/L (9-52); AST/SGOT 44 U/L (14-36); BILIRUBIN,DIRECT 0.3 mg/ml (0.0-0.4); BLOOD UREA NITROGEN 12 mg/dl (7-17); CALCIUM 9.1 mg/dL (8.4-10.2); GFR AFRICAN-AMERICAN > 60; GFR NON-AFRICAN AMERICAN > 60; LIPASE 70 U/L (23-300)
[2017-10-18 15:40] VITALS: TEMP 97.7
[2017-10-18] MEDS ORDERED: Oxycodone/Acetaminophen 5/325 mg Tab PO PRN (19:03)
--- NOTE | 2017-10-18 20:45 | CP.PCM.PN ---
Subjective - Date & Time of Evaluation Date of Evaluation: 10/18/17 Time of Evaluation: 17:30 Objective - Vital Signs/Intake and Output Vital Signs (last 24 hours): Temp Pulse Resp BP Pulse Ox 97.7 F 67 20 150/99 H 96 10/18/17 15:40 10/18/17 15:40 10/18/17 15:40 10/18/17 15:40 10/18/17 15:40 - Medications Medications: Current Medications Acetaminophen (Tylenol 325mg Tab) 650 mg PO Q6 PRN PRN Reason: Pain, Mild (1-3) Dorzolamide HCl (Trusopt) 1 drop OU BID [facility] Last Admin: 10/18/17 16:52 Dose: 1 drop Enalapril Maleate (Vasotec) 5 mg PO DAILY [facility] Enoxaparin Sodium (Lovenox) 40 mg SC DAILY [facility] PRN Reason: Protocol Last Admin: 10/18/17 09:53 Dose: 40 mg Famotidine (Pepcid) 20 mg PO BID [facility] Last Admin: 10/18/17 16:37 Dose: 20 mg Lactulose (Enulose) 20 gm PO BID PRN PRN Reason: Constipation Last Admin: 10/18/17 09:56 Dose: 20 gm Latanoprost (Xalatan Opht) 1 drop OU HS [facility] Last Admin: 10/17/17 21:35 Dose: 1 drop Metoprolol Tartrate (Lopressor) 50 mg PO Q12 [facility] Last Admin: 10/18/17 09:53 Dose: 50 mg Oxycodone/Acetaminophen (Percocet 5/325 Mg Tab) 1 tab PO Q4 PRN PRN Reason: Pain, moderate (4-7) Stop: 10/19/17 11:54 Last Admin: 10/18/17 14:44 Dose: 1 tab Oxycodone/Acetaminophen (Percocet 5/325 Mg Tab) 2 tab PO Q6 PRN PRN Reason: Pain, severe (8-10) Stop: 10/21/17 19:04 Timolol Maleate (Timoptic 0.5% Ophth Soln) 1 drop OU BID [facility] Last Admin: 10/18/17 16:37 Dose: 1 drop - Labs Labs: 10/18/17 14:10 10/18/17 14:10 PT 11.8 Seconds (9.8-13.1) 10/13/17 05:55 INR 1.1 (0.9-1.2) 10/13/17 05:55 APTT 34.2 Seconds (25.6-37.1) 10/13/17 05:55 Assessment and Plan (1) Gallstone pancreatitis Status: Acute
[2017-10-18] MEDS: Latanoprost 0.005% Opht SOUTION OU SCH (21:44)
[2017-10-19] MEDS: Oxycodone/Acetaminophen 5/325 mg Tab PO PRN ×2 (00:23→09:09)
--- NOTE | 2017-10-19 07:24 | CP.PCM.PN ---
Subjective - Date & Time of Evaluation Date of Evaluation: 10/19/17 Time of Evaluation: 06:45 - Subjective Subjective: General Surgery Note for Dr. Sanchez Patient seen and examined at bedside. No acute event overnight. Patient states pain is well controlled. Patient is tolerating diet, passing flatus and having BM. Denies nausea/vomiting. Patient has no complaints. Objective - Vital Signs/Intake and Output Vital Signs (last 24 hours): Temp Pulse Resp BP Pulse Ox 97.7 F 72 17 118/79 96 10/18/17 21:44 10/18/17 21:44 10/18/17 21:44 10/18/17 21:44 10/18/17 21:44 - Medications Medications: Current Medications Acetaminophen (Tylenol 325mg Tab) 650 mg PO Q6 PRN PRN Reason: Pain, Mild (1-3) Dorzolamide HCl (Trusopt) 1 drop OU BID [facility] Last Admin: 10/18/17 16:52 Dose: 1 drop Enalapril Maleate (Vasotec) 5 mg PO DAILY [facility] Enoxaparin Sodium (Lovenox) 40 mg SC DAILY [facility] PRN Reason: Protocol Last Admin: 10/18/17 09:53 Dose: 40 mg Famotidine (Pepcid) 20 mg PO BID [facility] Last Admin: 10/18/17 16:37 Dose: 20 mg Lactulose (Enulose) 20 gm PO BID PRN PRN Reason: Constipation Last Admin: 10/18/17 09:56 Dose: 20 gm Latanoprost (Xalatan Opht) 1 drop OU HS [facility] Last Admin: 10/18/17 21:44 Dose: 1 drop Metoprolol Tartrate (Lopressor) 50 mg PO Q12 [facility] Last Admin: 10/18/17 21:44 Dose: 50 mg Oxycodone/Acetaminophen (Percocet 5/325 Mg Tab) 1 tab PO Q4 PRN PRN Reason: Pain, moderate (4-7) Stop: 10/19/17 11:54 Last Admin: 10/19/17 00:23 Dose: 1 tab Oxycodone/Acetaminophen (Percocet 5/325 Mg Tab) 2 tab PO Q6 PRN PRN Reason: Pain, severe (8-10) Stop: 10/21/17 19:04 Timolol Maleate (Timoptic 0.5% Ophth Soln) 1 drop OU BID [facility] Last Admin: 10/18/17 16:37 Dose: 1 drop - Labs Labs: 10/18/17 14:10 10/18/17 14:10 PT 11.8 Seconds (9.8-13.1) 10/13/17 05:55 INR 1.1 (0.9-1.2) 10/13/17 05:55 APTT 34.2 Seconds (25.6-37.1) 10/13/17 05:55 - Constitutional Appears: No Acute Distress - Head Exam Head Exam: ATRAUMATIC, NORMOCEPHALIC - ENT Exam ENT Exam: Mucous Membranes Moist - Respiratory Exam Respiratory Exam: NORMAL BREATHING PATTERN - Cardiovascular Exam Cardiovascular Exam: REGULAR RHYTHM - GI/Abdominal Exam GI & Abdominal Exam: Soft, Tenderness (mild at incision sites), Normal Bowel Sounds - Extremities Exam Extremities Exam: Normal Capillary Refill - Neurological Exam Neurological Exam: Alert, Awake, Oriented x3 - Psychiatric Exam Psychiatric exam: Normal Affect, Normal Mood - Skin Skin Exam: Dry, Intact, Normal Color, Warm Assessment and Plan - Assessment and Plan (Free Text) Plan: 57 F with Gallstone pancreatitis and cholelithiasis s/p laparoscopic cholecystectomy POD#4 -Remove PICC line -Patient clear for discharge from surgical standpoint -Follow up with Dr. Sanchez within 1-2 weeks of discharge -Patient given rx for Aviva-colace -Discussed with Dr. Laura Bullock PGY1
[2017-10-19 07:38] VITALS: BP 134/84; PULSE 63; RESP 20; O2SAT 97
[2017-10-19] MEDS: Enoxaparin 40 mg Syringe SC SCH (09:11)
[2017-10-19] MEDS: Dorzolamide 2% Ophth Soln OU SCH (09:13)
[2017-10-19] MEDS ORDERED: Influenza Vaccine 18yr & older 0.5 ML/45 MCG SYR IM ONE (13:10)
--- NOTE | 2017-10-20 05:08 | OP ---
PROCEDURE DATE: 10/15/2017 PREOPERATIVE DIAGNOSES: 1. Gallstone pancreatitis. 2. Chronic cholecystitis and cholelithiasis. 3. Possible postinfectious adhesion. 4. Morbid obesity. POSTOPERATIVE DIAGNOSES: 1. Gallstone pancreatitis. 2. Chronic cholecystitis and cholelithiasis. 3. Possible postinfectious adhesion. 4. Morbid obesity. PROCEDURES DONE: 1. Laparoscopic cholecystectomy. 2. Laparoscopic extensive lysis of adhesion. SURGEON: Gray Sanchez MD HOSPITALITY HOUSEKEEPER: Eduardo Pickett and , PGY2 resident. TYPE OF ANESTHESIA: General endotracheal tube anesthesia. ESTIMATED BLOOD LOSS: Around 50 mL. DRAINS: None. COMPLICATIONS: None. INTRAOPERATIVE FINDINGS: The patient had extensive postinfectious adhesion due to the chronic cholecystitis and the patient also had a large cystic duct of approximately more than 1 cm in size. Due to morbid obesity and due to the extensive adhesion, it took approximately 60 to 80 minutes extra for the routine gallbladder procedure. DESCRIPTION OF PROCEDURE: On intraoperative steps, this is a 57-year-old female, who was diagnosed with gallstone pancreatitis with chronic cholecystitis, and the patient was consented for the laparoscopic cholecystectomy, possible open. Brought to the OR, placed supine on the operating table. After induction of the anesthesia, the abdomen was prepped and draped in the usual sterile fashion. A supraumbilical transverse incision was made after incising skin and subcutaneous tissue. The fascia was incised and Cindy port was placed. Pneumo was created. A 12-mm port was placed in the midline below costal margin and two 5-mm ports were placed in the midclavicular and anterior axillary line. After that, the grasper and dissector were introduced, and the patient was found to have extensive postinfectious and postoperative adhesion, and first lysis of adhesion was done. The patient also had postinflammatory edema surrounding gallbladder and gallbladder was retracted cranially. Calot's triangle was identified after extensive adhesiolysis of duodenum as well as colon to the gallbladder. Now the Calot's triangle dissection was done. Cystic duct and cystic artery were identified. There was extensive chronic adhesions. After the proper dissection, the cystic duct and common bile duct junction were identified. Cystic duct appeared to be extremely thick and larger than normal size. Now the top-down approach was done and the Calot's triangle was mobilized further to completely identify all the structures. Now the window was created behind the cystic duct. The cystic duct was stapled and cystic artery was clipped at three places and gallbladder was dissected free from the gallbladder fossa, taken in an EndoCatch bag, taken out through the umbilical port site. There was extensive post-dissection bleeding from the gallbladder fossa that was controlled, and suction irrigation of all the perihepatic as well as gallbladder fossa fluid collection was drained. Proper hemostasis was achieved in each and every part of the procedure, and another 10-15 minutes were spent for the proper hemostasis. Afterwards, the gallbladder was taken out through the umbilical port site and was sent off the table for the pathology. The umbilical port site was closed in 2 layers. Fascia with 0 Vicryl interrupted suture, skin with 4-0 Monocryl, and dry sterile dressing was applied. The patient tolerated the procedure well. Count of the instrument and gauze were correct. The patient was extubated in the OR, sent to the Postanesthesia Care Unit in stable condition. Gray Sanchez MD
--- NOTE | 2017-10-20 10:21 | CP.PCM.DIS ---
Provider - Provider Date of Admission: 10/06/17 17:03 Attending physician: Helga Chase MD Time Spent in preparation of Discharge (in minutes): 30 Diagnosis - Discharge Diagnosis (1) Gallstone pancreatitis Status: Acute Priority: High (2) S/P cholecystectomy Status: Acute (3) Essential hypertension Status: Chronic (4) Obesity Status: Acute Hospital Course - Lab Results Lab Results: Most Recent Lab Values WBC 10.9 K/uL (4.8-10.8) H 10/18/17 14:10 RBC 4.07 Mil/uL (3.80-5.20) 10/18/17 14:10 Hgb 11.9 g/dL (12.0-16.0) L 10/18/17 14:10 Hct 37.0 % (34.0-47.0) 10/18/17 14:10 MCV 91.0 fl (81.0-99.0) 10/18/17 14:10 MCH 29.3 pg (27.0-31.0) 10/18/17 14:10 MCHC 32.2 g/dL (33.0-37.0) L 10/18/17 14:10 RDW 13.2 % (11.5-14.5) 10/18/17 14:10 Plt Count 346 K/uL (130-400) 10/18/17 14:10 MPV 9.3 fl (7.2-11.7) 10/18/17 14:10 Neut % (Auto) 61.5 % (50.0-75.0) 10/18/17 14:10 Lymph % (Auto) 28.3 % (20.0-40.0) 10/18/17 14:10 [place] % (Auto) 6.0 % (0.0-10.0) 10/18/17 14:10 Eos % (Auto) 3.4 % (0.0-4.0) 10/18/17 14:10 Baso % (Auto) 0.8 % (0.0-2.0) 10/18/17 14:10 Neut # 6.7 K/uL (1.8-7.0) 10/18/17 14:10 Lymph # 3.1 K/uL (1.0-4.3) 10/18/17 14:10 [place] # 0.6 K/uL (0.0-0.8) 10/18/17 14:10 Eos # 0.4 K/uL (0.0-0.7) 10/18/17 14:10 Baso # 0.1 K/uL (0.0-0.2) 10/18/17 14:10 PT 11.8 Seconds (9.8-13.1) 10/13/17 05:55 INR 1.1 (0.9-1.2) 10/13/17 05:55 APTT 34.2 Seconds (25.6-37.1) 10/13/17 05:55 pO2 37 mm/Hg (30-55) 10/06/17 19:05 VBG pH 7.39 (7.32-7.43) 10/06/17 19:05 VBG pCO2 37 mmHg (40-60) L 10/06/17 19:05 VBG HCO3 22.5 mmol/L 10/06/17 19:05 VBG Total CO2 23.5 mmol/L (22-28) 10/06/17 19:05 VBG O2 Sat (Calc) 77.0 % (40-65) H 10/06/17 19:05 VBG Base Excess -2.2 mmol/L (0.0-2.0) L 10/06/17 19:05 VBG Potassium 3.1 mmol/L (3.6-5.2) L 10/06/17 19:05 Sodium 141.0 mmol/L (132-148) 10/06/17 19:05 Chloride 110.0 mmol/L (98-107) H 10/06/17 19:05 Glucose 98 mg/dL (65-105) 10/06/17 19:05 Lactate 1.2 mmol/L (0.7-2.1) 10/06/17 19:05 FiO2 21.0 % 10/06/17 19:05 Sodium 145 mmol/l (132-148) 10/18/17 14:10 Potassium 3.7 MMOL/L (3.6-5.0) 10/18/17 14:10 Chloride 103 mmol/L (98-107) 10/18/17 14:10 Carbon Dioxide 32 mmol/L (22-30) H 10/18/17 14:10 Anion Gap 14 (10-20) 10/18/17 14:10 BUN 12 mg/dl (7-17) 10/18/17 14:10 Creatinine 0.8 mg/dl (0.7-1.2) 10/18/17 14:10 Est GFR ( Amer) > 60 10/18/17 14:10 Est GFR (Non-Af Amer) > 60 10/18/17 14:10 Random Glucose 108 mg/dL (65-105) H 10/18/17 14:10 Calcium 9.1 mg/dL (8.4-10.2) 10/18/17 14:10 Magnesium 1.8 MG/DL (1.6-2.3) 10/13/17 05:55 Total Bilirubin 0.5 mg/dl (0.2-1.3) 10/18/17 14:10 Direct Bilirubin 0.3 mg/ml (0.0-0.4) 10/18/17 14:10 AST 44 U/L (14-36) H D 10/18/17 14:10 ALT 98 U/L (9-52) H D 10/18/17 14:10 Alkaline Phosphatase 186 U/L (38-126) H 10/18/17 14:10 NT-Pro-B Natriuret Pep 185 pg/ml (0-900) 10/10/17 11:38 Total Protein 7.2 G/DL (6.3-8.2) 10/18/17 14:10 Albumin 3.6 g/dL (3.5-5.0) 10/18/17 14:10 Globulin 3.6 gm/dL (2.2-3.9) 10/18/17 14:10 Albumin/Globulin Ratio 1.0 (1.0-2.1) 10/18/17 14:10 Triglycerides 125 mg/DL (0-149) 10/08/17 04:30 Cholesterol 205 mg/dL (0-199) H 10/08/17 04:30 LDL Cholesterol Direct 129 mg/dL (0-129) 10/08/17 04:30 HDL Cholesterol 31 MG/DL (30-70) 10/08/17 04:30 Amylase 62 U/L (30-110) 10/10/17 05:20 Lipase 70 U/L (23-300) 10/18/17 14:10 TSH 3rd Generation 1.10 mIU/ML (0.46-4.68) 10/07/17 04:20 Venous Blood Potassium 3.1 mmol/L (3.6-5.2) L 10/06/17 19:05 IgG, Serum (MS) 18.4 mg/dL (4-86) 10/08/17 04:30 IgG 1219.8 mg/dL (700.0-1600.0) 10/08/17 04:30 MARLIN Screen Negative (Negative) 10/08/17 04:30 Anti-Mitochondrial Ab Negative (Negative) 10/08/17 04:30 Smooth Muscle Ab Titer 1:20 Titer (< 1:20) H 10/08/17 04:30 Anti-Smooth Muscle Ab Positive (Negative) H 10/08/17 04:30 Hepatitis A IgM Ab Negative (NEGATIVE) 10/08/17 04:30 Hep Bs Antigen Negative (NEGATIVE) 10/08/17 04:30 Hep B Core IgM Ab Negative (NEGATIVE) 10/08/17 04:30 Hepatitis C Antibody Negative (NEGATIVE) 10/08/17 04:30 - Hospital Course Hospital Course: A 57yoF admitted for Severe Acute Gallstone Pancreatitis and Abnormal Liver enzymes, and laprascopic Cholecystectomy done after patient was treated for the Acute Pancreatitis. Also was found to have Cardiomyopthy (EF 35-40%), and wall motion abnormality requiring Cardiac Catheterization which showed Normal Coronaries, and DX of Hypertensive Heart Disease. Post surgey, patient wa unable to ambulate well and received PT/OT in the hospital as discharge planning as patient live by herself. Discharge Exam - Head Exam Head Exam: ATRAUMATIC, NORMAL INSPECTION, NORMOCEPHALIC - Eye Exam Eye Exam: EOMI, Normal appearance, PERRL Pupil Exam: NORMAL ACCOMODATION, PERRL - ENT Exam ENT Exam: Mucous Membranes Moist - Neck Exam Neck exam: Full Rom - Respiratory Exam Respiratory Exam: Clear to PA & Lateral, NORMAL BREATHING PATTERN. absent: Rales, Rhonchi, Wheezes - Cardiovascular Exam Cardiovascular Exam: REGULAR RHYTHM, +S1, +S2 - GI/Abdominal Exam GI & Abdominal Exam: Normal Bowel Sounds. absent: Guarding, Rebound, Rigid - Extremities Exam Extremities exam: full ROM, normal capillary refill - Back Exam Back exam: FULL ROM, NORMAL INSPECTION. absent: CVA tenderness (L), CVA tenderness (R), tenderness - Neurological Exam Neurological exam: Alert, CN II-XII Intact, Normal Gait, Oriented x3, Reflexes Normal - Psychiatric Exam Psychiatric exam: Normal Affect, Normal Mood - Skin Skin Exam: Dry, Intact, Normal Color, Warm Discharge Plan - Discharge Medications Prescriptions: Metoprolol Succinate 50 mg PO DAILY #30 tab.er.24h amLODIPine [Norvasc] 10 mg PO DAILY #30 tab Famotidine [Pepcid] 20 mg PO BID #60 tab oxyCODONE/Acetaminophen [Percocet 5/325 mg Tab] 1 tab PO Q4 PRN #30 tab PRN Reason: Pain, Severe (8-10) Enalapril Maleate [Vasotec] 2.5 mg PO DAILY #30 tab Latanoprost 0.005% Opht [Xalatan Opht] 1 drp OP HS 30 Days bottle - Follow Up Plan Condition: GOOD Disposition: HOME/ ROUTINE Instructions: Pancreatitis (DC), Laparoscopic Cholecystectomy (DC), Heart Catheterization (GEN), Hypertension (DC), Hypertension (GEN) Additional Instructions: Please call Dr. Sanchez's office for follow up and to schedule an outpatient surgery to remove your gallbladder. Referrals: Lucian Fountain MD [Staff Provider] - Gray Sanchez MD [Staff Provider] -
== END 2017-10-19 13:00 | disposition home or self-care (01) | DRG 556 ==
LOC: H.ER 13:19 → H.ERHOLD 17:03 → H.TEL 19:07 → H.MEDSURG1 10-08 18:55 → H.TEL 10-15 18:32 → H.MEDSURG1 10-16 13:03
PROVIDERS: ADMIT Internal Medicine; ATTEND Internal Medicine
PROC: 02HV33Z Insertion of Infusion Device into Superior Vena Cava, Percutaneous Approach (ICD-10-PCS; 2017-10-10)
PROC: B518ZZA Fluoroscopy of Superior Vena Cava, Guidance (ICD-10-PCS; 2017-10-10)
PROC: B548ZZA Ultrasonography of Superior Vena Cava, Guidance (ICD-10-PCS; 2017-10-10)
PROC: 4A023N8 Measurement of Cardiac Sampling and Pressure, Bilateral, Percutaneous Approach (ICD-10-PCS; 2017-10-13)
PROC: B206YZZ Plain Radiography of Right and Left Heart using Other Contrast (ICD-10-PCS; 2017-10-13)
PROC: 0DN94ZZ Release Duodenum, Percutaneous Endoscopic Approach (ICD-10-PCS; 2017-10-15)
PROC: 0FT44ZZ Resection of Gallbladder, Percutaneous Endoscopic Approach (ICD-10-PCS; principal; 2017-10-15 13:30)
DX: K80.67 Calculus of gallbladder and bile duct with acute and chronic cholecystitis with obstruction (principal); I50.20 Unspecified systolic (congestive) heart failure; K85.10 Biliary acute pancreatitis without necrosis or infection; I43 Cardiomyopathy in diseases classified elsewhere; E66.01 Morbid (severe) obesity due to excess calories; I11.0 Hypertensive heart disease with heart failure; E87.6 Hypokalemia; Z68.39 Body mass index [BMI] 39.0-39.9, adult; G89.29 Other chronic pain; H40.9 Unspecified glaucoma; I25.10 Atherosclerotic heart disease of native coronary artery without angina pectoris; J45.909 Unspecified asthma, uncomplicated; K21.9 Gastro-esophageal reflux disease without esophagitis; Z86.73 Personal history of transient ischemic attack (TIA), and cerebral infarction without residual deficits; Z90.49 Acquired absence of other specified parts of digestive tract; Z90.710 Acquired absence of both cervix and uterus; M54.30 Sciatica, unspecified side; R19.7 Diarrhea, unspecified; R06.09 Other forms of dyspnea; R74.8 Abnormal levels of other serum enzymes; R79.89 Other specified abnormal findings of blood chemistry; R94.5 Abnormal results of liver function studies; K66.0 Peritoneal adhesions (postprocedural) (postinfection)